=== PATIENT | male | born 1960 | race Caucasian/White ===

== ENCOUNTER → 2018-03-22 06:26 | Outpatient (CLI) | payer OTHER, SELFPAY ==
--- NOTE | 2018-03-22 | DI.MRI.S_ITS ---
PROCEDURE: MR KNEE RT WO CON INDICATIONS: PAIN IN RIGHT KNEE TECHNIQUE: Noncontrast sagittal PD fast spin echo and T2 fast spin echo with fat saturation, sagittal 3-D FLASH with fat saturation; coronal T1 spin echo and PD fast spin echo with fat saturation, and axial PD fast spin echo with fat saturation through the knee. COMPARISON: None. FINDINGS: Image quality: Excellent. Menisci: Vertically oriented tear of the posterior horn of the medial meniscus, for example image 23 series 11, image 24 series 8. The meniscus appears intact. Cruciate ligaments: The anterior and posterior cruciate ligaments appear intact. Medial structures: The medial collateral ligament appears mildly thickened although generally low in signal, for example image 19 series 11. The posterior oblique ligament, semimembranosus tendon insertions, oblique popliteal ligament, and meniscocapsular junction appear intact. Visualized portions of the pes anserinus tendons appear normal. No abnormal bursal fluid. Lateral structures: The lateral collateral ligament, long and short heads of the biceps femoris tendon appear intact. The popliteus tendon appears normal; the popliteofibular ligament appears intact. The posterosuperior and anteroinferior popliteomeniscal fascicles appear intact. The arcuate and fabellofibular ligaments appear intact, on either side of the lateral inferior geniculate artery. Iliotibial band appears normal. Anterior structures: Prepatellar and superficial infrapatellar subcutaneous edema is present. The quadriceps and patellar tendons appear intact. There is chronic appearing minimal patellar tendinopathy. Patellar alignment is normal. No femoral trochlear dysplasia or ventral trochlear prominence. No edema in the infrapatellar fat pad. Bones and cartilage: No bone marrow contusions or fractures. Within the medial compartment, there is mild partial thickness loss of the femoral articular cartilage. Tibia cartilage appears grossly preserved. Within the lateral compartment, the femoral and tibial articular cartilage appears grossly preserved. Within the patellofemoral compartment, there is surface fraying and partial-thickness loss of the cartilage overlying the median patellar ridge with mild subjacent marrow signal change. The femoral trochlear cartilage appears grossly intact. Joint space: Moderate joint effusion. There is a Diallo's cyst which measures approximately 5.7 cm in the cephalocaudad dimension. There is adjacent fluid. IMPRESSION: Vertically oriented tear involving the posterior horn of the medial meniscus. Low-grade medial collateral ligament sprain which appears chronic. Please correct clinically. Mild degenerative joint disease as above. Moderate joint effusion. Diallo's cyst. This may be slightly partially ruptured Minimal probably chronic patellar tendinopathy. Prepatellar and superficial infrapatellar subcutaneous edema. Dictated by: Emmanuel Álvarez M.D. on 03/22/2018 at 9:30 Approved by: Emmanuel Álvarez M.D. on 03/22/2018 at 9:44
== END ==
PROVIDERS: Visit Provider Family Medicine
DX: S83.241A Other tear of medial meniscus, current injury, right knee, initial encounter (principal); M25.561 Pain in right knee; M17.11 Unilateral primary osteoarthritis, right knee; M25.461 Effusion, right knee; M71.21 Synovial cyst of popliteal space [Baker], right knee
CPT/HCPCS: 73721

== ENCOUNTER → 2020-10-27 07:04 | Outpatient (CLI) | payer OTHER, SELFPAY ==
[2020-10-27 08:36] LABS: Hemoglobin A1C% w Est Avg Glu 6.1 % (4.0-6.0)
[2020-10-27 08:42] LABS: Alanine Aminotransferase 27 IU/L (<50); Albumin 3.8 g/dL (3.5-5.0); Albumin Globulin Ratio 1.4 (1.0-2.8); Alkaline Phosphatase 65 U/L (38-126); Aspartate Aminotransferase 27 IU/L (17-59); BUN Creatinine Ratio 17.9 (6-22); Bilirubin Total 0.6 mg/dL (0.2-1.3); Blood Urea Nitrogen 19 mg/dL (9-20); Calcium 9.5 mg/dL (8.4-10.2); Carbon Dioxide 32 mmol/L (22-32); Chloride 101 mmol/L (98-107); Cholesterol 159 mg/dL (140-199); Estimated Glomerular Filt Rate > 60.0 mL/min (>60); Globulin 2.8 g/dL (1.7-4.1); Glucose 118 mg/dL (70-100); HDL Cholesterol 27 mg/dL (40-60); HEMOLYSIS < 15 (0-50); LDL Cholesterol Calculated 93 mg/dL (<100); Sodium 140 mmol/L (137-145); Total Protein 6.6 g/dL (6.3-8.2); Triglycerides 193 mg/dL (35-150)
== END ==
PROVIDERS: PCP Internal Medicine; Referring Provider Internal Medicine; Visit Provider Internal Medicine
DX: I10 Essential (primary) hypertension (principal); I49.9 Cardiac arrhythmia, unspecified; N18.2 Chronic kidney disease, stage 2 (mild); R73.09 Other abnormal glucose
CPT/HCPCS: 36415; 80053; 80061; 83036

== ENCOUNTER 2021-01-26 09:06 | Emergency (ER) | payer OTHER, SELFPAY ==
[2021-01-26] VITALS (36 sets, daily range): BP systolic 145–204; BP diastolic 70–107; PULSE 45–70; RESP 11–38; TEMP 36.8; O2SAT 94–99; BMI 46.7
--- NOTE | 2021-01-26 09:18 | DI.CT.S_ITS ---
PROCEDURE: CT HEAD/BRAIN WO CON INDICATIONS: vertigo TECHNIQUE: Noncontrast 4.5 mm thick angled axial sections acquired from the foramen magnum to the vertex, with coronal and sagittal reformats. For radiation dose reduction, the following was used: automated exposure control, adjustment of mA and/or kV according to patient size. COMPARISON: None. FINDINGS: Image quality: Excellent. CSF spaces: Basal cisterns are patent. No extra-axial fluid collections. Ventricles are normal in size and shape. Brain: No midline shift. No intracranial masses or hemorrhage. Lynch-white matter interface is normal. Skull and face: Calvarium and visualized facial bones are intact, without suspicious lesions. Sinuses: Visualized sinuses and mastoids are clear. IMPRESSION: No acute intracranial finding. Dictated by: Roberto Pena M.D. on 01/26/2021 at 9:43 Approved by: Roberto Pena M.D. on 01/26/2021 at 9:44
--- NOTE | 2021-01-26 09:33 | DI.RAD.S_ITS ---
PROCEDURE: XR CHEST 1V INDICATIONS: chest pain TECHNIQUE: One view of the chest was acquired. COMPARISON: None. FINDINGS: Heart size enlarged. Mild vascular congestion noted. There is obscuration of left hemidiaphragm with a blunting of left costophrenic angle. Right lung and pleural space clear. Osseous structures unremarkable. IMPRESSION: Cardiomegaly, mild vascular congestion and left pleural effusion with atelectasis and/or infiltrate Approved by: Ted Edmond M.D. on 01/26/2021 at 9:16
--- NOTE | 2021-01-26 09:34 | ED_ITS ---
HPI - Neuro Symptoms/Deficit General Chief Complaint: Neuro Symptoms/Deficit Stated Complaint: BLACKING OUT/LOSS OF BALANCE/FUZZY/HEAVY CHESTED Time Seen by Provider: 01/26/21 09:17 Source: patient Mode of arrival: Wheelchair Limitations: no limitations History of Present Illness HPI Narrative: Patient is a 60-year-old male. A history of high blood pressure. Who is here for evaluation of an episode that occurred approximately 1 hour prior to arrival here in the ER. He stated that he was at his normal state he alth. He bent over while he was at work to pick something up. He stated that everything went black. He started to feel like his vision was changing. Became lightheaded. Was off balance and then describes a heaviness in his chest. Also stating that he was having some difficulty taking a deep breath. No abdominal pain, no nausea vomiting. No rashes. By the time he arrived to the emergency d epartment his vision changes have improved greatly but he is still having chest discomfort. On Anticoagulants: No Related Data Previous Rx's Medication Instructions Recorded lisinopril 20 1 tab PO DAILY #90 tab 02/17/20 mg-hydrochlorothiazide 12.5 mg tablet metoprolol tartrate 25 mg tablet 25 mg PO BID #180 tab 02/17/20 Allergies Allergy/AdvReac Type Severity Reaction Status Date / Time Corstisone Shots Allergy Mild Swelling Uncoded 11/26/20 13:28 Review of Systems Constitutional Constitutional: Denies fever(s) and Denies headache(s) Eyes Eyes: Reports as per HPI ENT Ears, Nose, Mouth, and Throat: Reports dizziness and Denies headache(s) Cardiovascular Cardiovascular: Reports as per HPI Respiratory Respiratory: Reports as per HPI Gastrointestinal Gastrointestinal: Reports system reviewed and no additional complaints, except as documented Genitourinary Genitourinary: Reports system reviewed and no additional complaints, except as documented Musculoskeletal Musculoskeletal: Reports system reviewed and no additional complaints, except as documented Integumentary/Breasts Skin/Breast: Reports system reviewed and no additional complaints, except as documented Neurologic Neurologic: Reports dizziness and Denies headache(s) Endocrine Endocrine: Reports system reviewed and no additional complaints, except as documented Hematologic/Lymphatic On Anticoagulants: No Allergic/Immunologic Allergic/Immunologic: Reports system reviewed and no additional complaints, except as documented Patient History Medical History Cardiac arrhythmia (~2017) Chronic renal failure, stage 2 (mild) Essential hypertension (~1999) Hyperglycemia Kidney stones (~2011) Left ventricular hypertrophy Obstructive sleep apnea of adult (~2018) Surgical History (Updated 03/28/20 @ 17:29 by Vernell Monterroso) Anesthesia H/O right knee surgery (~03/2018) Family History (Updated 03/28/20 @ 17:30 by Vernell Monterroso) Father Bronchitis Mother Diabetes mellitus History of heart disease Sister Cancer Social History Smoking Status: Never smoker Smoking Status: Never smoker Substance Use Type: does not use Exam Initial Vital Signs Initial Vital Signs: Vital Signs Pulse Oximetry 98 01/26/21 09:24 Const General: cooperative, comfortable and well developed HENMT Head: normal to inspection and normocephalic Eyes General: appearance normal, both eyes and all related structures Pupils: PERRL EOM: EOM intact bilaterally Chest Chest: normal inspection of the chest Resp Effort & Inspection: normal respiratory effort Auscultation: clear to auscultation bilaterally Cardio Rate: regular rate Rhythm: regular rhythm GI Inspection: normal to inspection Skin General: no rashes or lesions noted Neuro General: patient alert, patient awake, patient oriented x3 and moves all extremities Cranial Nerves: CN's II-XI intact bilaterally Cognition: normal cognition Speech: speech normal Motor: muscle tone normal throughout Extrem General: normal to inspection and capillary refill normal Psych Appearance: grossly normal and well kempt Scores NIH Stroke Scale Level of Conciousness: Alert, keenly responsive Ask month/age: Answers both questions correctly. Open/close eyes, close hand: Performs both tasks correctly Best gaze horizontal: Normal Visual merino: No visual loss Facial palsy: Normal symetrical movement Left arm drift: No drift for full 10 sec Right arm drift: No drift for full 10 sec Left leg drift: No drift for full 5 sec Right leg drift: No drift for full 5 sec Limb ataxia: Absent Sensory on face/arms/legs: Mild to moderate sensory loss, can tell touch (Right-sided face) Best language: No aphasia, normal Dysarthria: Normal Extinction or inattention: No abnormality Total NIH Stroke scale score: 1 Course Orders Ordered: ED Orders 01/26/21 09:18 CT head/brain wo con Stat 01/26/21 09:19 EKG-12 Lead Stat 01/26/21 09:25 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) Stat 01/26/21 09:33 XR chest 1V Stat 01/26/21 09:35 Complete Blood Count AUTO DIFF Stat Comprehensive Metabolic Panel Stat Ethanol (ETOH) Stat Lipase Stat Partial Thromboplastin Time Stat Prothrombin Time INR Stat Troponin & CK Cardiac Panel Stat 01/26/21 09:54 CT angio head and neck Stat 01/26/21 12:51 Troponin I Stat 01/26/21 13:26 EKG-12 Lead Stat 01/26/21 16:30 PTT [Partial Thromboplastin Time] Q6H 01/26/21 22:30 PTT [Partial Thromboplastin Time] Q6H 01/27/21 04:30 PTT [Partial Thromboplastin Time] Q6H 01/27/21 10:30 PTT [Partial Thromboplastin Time] Q6H Heparin Sodium/Dextrose (Heparin Drip) 25,000 unit in 500 mls @ 20 mls/hr IV CO NT [facility]; Protocol Last Admin: 01/26/21 15:27 Dose: 1,000 units/hr, 20 mls/hr Documented by: ZHEN Discontinued Medications Aspirin (Aspirin 81 Mg Chew Tab) 324 mg PO NOW ONE Stop: 01/26/21 09:35 Last Admin: 01/26/21 09:50 Dose: 324 mg Documented by: ZHEN Heparin Sodium (Porcine) (Heparin 5,000 Unit/Ml Vial) 5,000 unit IV NOW ONE Stop: 01/26/21 15:07 Last Admin: 01/26/21 15:27 Dose: 5,000 unit Documented by: ZHEN Nitroglycerin (Nitroglycerin Oint 1 Inch/Gm Oint...G.) 0.5 inch TOP NOW ONE Stop: 01/26/21 09:34 Last Admin: 01/26/21 09:50 Dose: 0.5 inch Documented by: ZHEN Nitroglycerin (Nitroglycerin 0.4 Mg Sl Tab) 0.4 mg SL NOW ONE Stop: 01/26/21 10:18 Last Admin: 01/26/21 10:21 Dose: 0.4 mg Documented by: ZHEN Vital Signs Vital signs: Vital Signs - 8 hr 01/26/21 09:24 01/26/21 09:30 01/26/21 09:31 Temperature Pulse Rate 68 62 Respiratory Rate Blood Pressure 204/93 H Pulse Oximetry 98 97 97 01/26/21 09:50 01/26/21 09:53 01/26/21 10:00 Temperature Pulse Rate 60 63 59 L Respiratory Rate 20 22 Blood Pressure 204/94 H 178/107 H Pulse Oximetry 97 97 01/26/21 10:01 01/26/21 10:14 01/26/21 10:21 Temperature Pulse Rate 56 L 70 60 Respiratory Rate 19 22 Blood Pressure 175/94 H 175/94 H 175/94 H Pulse Oximetry 97 98 01/26/21 10:30 01/26/21 10:31 01/26/21 11:00 Temperature Pulse Rate 57 L 57 L 50 L Respiratory Rate 16 18 19 Blood Pressure 160/78 H Pulse Oximetry 96 95 96 01/26/21 11:01 01/26/21 11:30 01/26/21 11:31 Temperature Pulse Rate 56 L 57 L 57 L Respiratory Rate 19 14 13 Blood Pressure 161/85 H 145/92 H Pulse Oximetry 97 95 96 01/26/21 12:00 01/26/21 12:01 01/26/21 12:30 Temperature Pulse Rate 45 L 47 L 56 L Respiratory Rate 11 L 21 17 Blood Pressure 164/83 H Pulse Oximetry 98 98 97 01/26/21 12:31 01/26/21 13:00 01/26/21 13:01 Temperature Pulse Rate 52 L 48 L 50 L Respiratory Rate 21 21 23 Blood Pressure 159/82 H 157/83 H Pulse Oximetry 96 97 97 01/26/21 13:30 01/26/21 13:31 01/26/21 14:00 Temperature Pulse Rate 53 L 52 L 48 L Respiratory Rate 18 20 16 Blood Pressure 151/81 H Pulse Oximetry 97 98 98 01/26/21 14:01 01/26/21 14:30 01/26/21 14:31 Temperature Pulse Rate 50 L 55 L 50 L Respiratory Rate 17 20 22 Blood Pressure 154/80 H 155/75 H Pulse Oximetry 98 98 99 01/26/21 14:36 01/26/21 15:00 01/26/21 15:01 Temperature 98.3 F Pulse Rate 56 L 55 L Respiratory Rate 27 H 30 H Blood Pressure 174/98 H Pulse Oximetry 98 98 01/26/21 15:30 Temperature Pulse Rate 57 L Respiratory Rate 27 H Blood Pressure Pulse Oximetry 97 MDM - Neuro Symptoms/Deficit Lab Data Attestation: I reviewed the patient's lab results. Result diagrams: 01/26/21 09:35 01/26/21 09:35 Labs: Lab Results 01/26/21 01/26/21 01/26/21 Range/Units 09:25 09:35 09:35 WBC 8.4 (4.5-11.0) X10^3/uL RBC 5.25 (4.5-5.9) X10^6/uL Hgb 15.3 (13.5-17.5) g/dL Hct 45.0 (41-53) % MCV 85.6 (80-100) fL MCH 29.1 (26-34) PG MCHC 34.0 (30-36) % RDW 13.4 (11.6-14.8) % Plt Count 210 (150-400) X10^3/uL Neut % (Auto) 70.6 (50-75) % Lymph % (Auto) 18.4 L (25-40) % Mitchell % (Auto) 7.8 (3-14) % Eos % (Auto) 2.0 (2-4) % Baso % (Auto) 1.2 (0-2) % Neut # (Auto) 5900 (7787-8220) /uL Lymph # (Auto) 1500 (2214-1584) /uL Mitchell # (Auto) 700 (0-900) /uL Eos # (Auto) 200 (0-450) /uL Baso # (Auto) 100 (0-100) /uL PT 12.7 (10.1-12.7) SECONDS INR 1.1 (0.9-1.3) APTT 34 (26.4-36.2) SECONDS Sodium (137-145) mmol/L Potassium (3.4-5.1) mmol/L Chloride (98-107) mmol/L Carbon Dioxide (22-32) mmol/L BUN (9-20) mg/dL Creatinine (0.66-1.25) mg/dL Estimated GFR (>60) mL/min BUN/Creatinine Ratio (6-22) Glucose (70-100) mg/dL Calcium (8.4-10.2) mg/dL Total Bilirubin (0.2-1.3) mg/dL AST (17-59) IU/L ALT (<50) IU/L Alkaline Phosphatase (38-126) U/L Total Creatine Kinase (55-170) U/L CK-MB (CK-2) (<2.37) ng/mL CK-MB (CK-2) Rel Index (1.5-5.0) % Troponin I (0.01-0.034) ng/mL Total Protein (6.3-8.2) g/dL Albumin (3.5-5.0) g/dL Globulin (1.7-4.1) g/dL Albumin/Globulin Ratio (1.0-2.8) Lipase (23-300) U/L Ethyl Alcohol ( - 10) mg/dL SARS-CoV-2 (PCR) Negative (Negative) 01/26/21 01/26/21 Range/Units 09:35 12:51 WBC (4.5-11.0) X10^3/uL RBC (4.5-5.9) X10^6/uL Hgb (13.5-17.5) g/dL Hct (41-53) % MCV (80-100) fL MCH (26-34) PG MCHC (30-36) % RDW (11.6-14.8) % Plt Count (150-400) X10^3/uL Neut % (Auto) (50-75) % Lymph % (Auto) (25-40) % Mitchell % (Auto) (3-14) % Eos % (Auto) (2-4) % Baso % (Auto) (0-2) % Neut # (Auto) (6531-3608) /uL Lymph # (Auto) (2629-7663) /uL Mitchell # (Auto) (0-900) /uL Eos # (Auto) (0-450) /uL Baso # (Auto) (0-100) /uL PT (10.1-12.7) SECONDS INR (0.9-1.3) APTT (26.4-36.2) SECONDS Sodium 137 (137-145) mmol/L Potassium 3.9 (3.4-5.1) mmol/L Chloride 103 (98-107) mmol/L Carbon Dioxide 26 (22-32) mmol/L BUN 16 (9-20) mg/dL Creatinine 0.93 (0.66-1.25) mg/dL Estimated GFR > 60.0 (>60) mL/min BUN/Creatinine Ratio 17.2 (6-22) Glucose 115 H (70-100) mg/dL Calcium 9.3 (8.4-10.2) mg/dL Total Bilirubin 0.4 (0.2-1.3) mg/dL AST 32 (17-59) IU/L ALT 30 (<50) IU/L Alkaline Phosphatase 65 (38-126) U/L Total Creatine Kinase 180 H (55-170) U/L CK-MB (CK-2) 2.17 (<2.37) ng/mL CK-MB (CK-2) Rel Index 1.2 L (1.5-5.0) % Troponin I 0.056 H 0.049 H (0.01-0.034) ng/mL Total Protein 7.4 (6.3-8.2) g/dL Albumin 4.3 (3.5-5.0) g/dL Globulin 3.1 (1.7-4.1) g/dL Albumin/Globulin Ratio 1.4 (1.0-2.8) Lipase 68 (23-300) U/L Ethyl Alcohol < 10 ( - 10) mg/dL SARS-CoV-2 (PCR) (Negative) Urine Dip Bedside Urine Glucose Negative Bedside Urine Bilirubin - Negative Bedside Urine Ketone - Negative Urine Specific [place] 1.015 Bedside Urine Occult Blood - Negative Bedside Urine pH 6.5 Bedside Urine Protein - Negative Bedside Urine Leukocytes - Negative Esterase ECG Data Attestation: I personally reviewed and interpreted this ECG as follows: Interpretation: Sinus rhythm Ventricular rate is 67 Frequent PACs Normal QRS Normal QTC Nonspecific ST T wave changes Repeat EKG Sinus bradycardia Ventricular rate of 58 Occasional PACs Normal QRS Normal QTC Relatively unchanged from prior EKG [facility] Narrative Medical decision making narrative: Patient was a code stroke upon arrival however after further evaluation his presenting neurologic symptoms are most likely a presyncopal episode. He was having chest pressure. Was also hypertensive. Was given nitro paste which helped his chest pressure somewhat and then was given 1 dose of oral nitroglycerin. This then improve his blood pressure and his chest discomfort completely resolved. He had nonspecific changes on his EKG. His initial troponin greater than the 99th percentile. Started on heparin. Was given an aspirin. Remained chest pain free. Repeat troponin somewhat lower than the initial troponin but still above 99th percentile. I did discuss the case with Dr. Mccauley with Cardiology at [facility] who stated that he would see the patient upon arrival. I then discussed the case with Dr. James with Internal Medicine at [facility] who accepts the patient to transport. I went back in and talked with the patient about the transfer. This is when he stated that in March of last year he was in [place] and had chest discomfort. He was admitted to the hospital. Stated that he had a full workup to include a cardiac catheterization. He was told that everything was ?okay ?he had no stents placed. I do not these records in front of me to review. Since that time he has had chest discomfort at home. He does not have any nitroglycerin at home to take. Had a long discussion with him and his regarding this new circumstance. Informed him that his presenting symptoms today are concerning given the fact that he was having chest discomfort that resolved with nitroglycerin also in the setting of hypertension. Informed him that being transferred to a facility that has Cardiology/catheterization capability would be the most conservative thing to do for further evaluation of his symptoms today however I did offer to contact his primary care doctor to see whether not Dr. Shaikh would be willing to admit him to this facility given his workup almost 1 year ago. After this discussion with his at bedside the patient stated that he was willing to be transferred for further evaluation. Patient is currently stable for transport. I did look through his EMR records and could not find his prior cardiac workup that he stated was placed in his record by his primary doctor. Critical Care Time Critical Care Time Critical Care Time: Yes Total Critical Care Time: 35 Attestation: The high probability of a clinically significant, sudden or life threatening deterioration of the cardiovascular system(s) required my full and direct attention, intervention and personal management. The aggregate critical care time was [35] minutes. This time is in addition to time spent performing reported procedures but includes the following: [x] Data Review and interpretation [x] Patient assessment and monitoring of vital signs [x] Documentation [x] Medication orders and management Discharge Plan Departure Patient Disposition: [facility] Clinical Impression: Non-ST elevation NE (NSTEMI) Prescriptions: No Action lisinopril-hydrochlorothiazide 20-12.5 mg tablet 1 tab PO DAILY Qty: 90 RF: 3 metoprolol tartrate 25 mg tablet 25 mg PO BID Qty: 180 RF: 3 Referrals: Adan Shaikh MD [Primary Care Provider] -
[2021-01-26 09:42] LABS: Add Manual Diff / Slide Review NO; Basophils Absolute Auto 100 /uL (0-100); Basophils Percent Auto 1.2 % (0-2); Eosinophils Absolute Auto 200 /uL (0-450); Hemoglobin 15.3 g/dL (13.5-17.5); Lymphocytes Absolute Auto 1500 /uL (1100-4500); Lymphocytes Percent Auto 18.4 % (25-40); Mean Corpuscular Hemoglobin 29.1 PG (26-34); Mean Corpuscular Volume 85.6 fL (80-100); Monocytes Absolute Auto 700 /uL (0-900); Monocytes Percent Auto 7.8 % (3-14); Neutrophils Absolute Auto 5900 /uL (1500-7000); Neutrophils Percent Auto 70.6 % (50-75); Platelet Count 210 X10^3/uL (150-400); Red Blood Cell Count 5.25 X10^6/uL (4.5-5.9); Red Cell Distribution Width 13.4 % (11.6-14.8); White Blood Cell Count 8.4 X10^3/uL (4.5-11.0)
[2021-01-26 09:48] LABS: INR 1.1 (0.9-1.3); Prothrombin Time 12.7 SECONDS (10.1-12.7)
[2021-01-26] MEDS: NITROGLYCERIN OINT 1 INCH/GM OINT...G. 0.5 INCH TOP (09:50)
[2021-01-26] MEDS: ASPIRIN 81 MG CHEW TAB 324 MG PO (09:50)
[2021-01-26 09:51] LABS: PTT Partial Thromboplastin Tim 34 SECONDS (26.4-36.2)
--- NOTE | 2021-01-26 09:54 | DI.CT.S_ITS ---
PROCEDURE: CT ANGIO HEAD AND NECK INDICATIONS: vertigo TECHNIQUE: Noncontrast images were performed earlier in the day and not repeated. After the administration of intravenous contrast, 1 mm thick sections acquired from the aortic arch through the [place]. Post-contrast 4.5 mm thick sections then re-acquired from the foramen magnum to the vertex. 3-dimensional ykzsjxb-rdznmqmyz-bphonlaash (MIP) and/or volume rendering reformats were acquired of the central intracranial vasculature and neck separately. COMPARISON: [facility], CT, CT HEAD/BRAIN WO CON, 01/26/2021, 9:21. FINDINGS: Image quality: Excellent. BRAIN: CSF spaces: Ventricles are normal in size and shape. Basal cisterns are patent. No extra-axial fluid collections. Brain: No midline shift. No intracranial bleeds or masses. Lynch-white matter interface appears intact. Skull and face: Calvarium and facial bones appear intact, without suspicious lesions. Orbits appear normal. Sinuses: Sinuses and mastoids are clear. HEAD CT ANGIOGRAPHY: Anterior circulation: Intracranial internal carotid arteries are normal in size and flow. There is a hypoplastic right A1 segment, with a corresponding robust left A1 segment. This is considered to be a normal developmental variant of the [place], of typically no clinical consequence. The flow within the paired anterior cerebral arteries is otherwise normal and symmetric. The flow within the middle cerebral arteries is normal and symmetric. The anterior communicating artery is seen. No aneurysms are seen. Posterior circulation: The distal right vertebral artery largely terminates in right posterior inferior cerebellar artery. There is a normal appearing basilar artery. Flow within the posterior cerebral arteries is normal and symmetric. No aneurysms are seen. NECK CT ANGIOGRAPHY: Carotid system: The great vessels demonstrate a conventional anatomy as they arise from the aortic arch. The origins of the common carotid arteries appear patent. The common carotid arteries demonstrate normal caliber and courses. The bifurcation regions demonstrate atherosclerotic irregularity and calcification, yet without a hemodynamically significant stenosis. The more distal internal carotid arteries demonstrate normal calibers. The internal carotid arteries are highly tortuous. Posterior circulation: The origins of the vertebral arteries both appear widely patent. The more superior extracranial portions of both vertebral arteries also demonstrate normal courses and calibers. The left vertebral artery is dominant to the right. Soft tissues: Visualized neck soft tissues demonstrate no suspicious abnormalities. Bones: No suspicious bony lesions. Visualized cervical spine appears normally aligned. IMPRESSION: No significant intracranial arterial abnormality is seen. Within the arteries of the neck, no hemodynamically significant stenosis can be seen. Incidental note is made of: Hypoplastic right A1 segment Tortuous internal carotid arteries. Any quantitative measurements of stenosis were performed using NASCET criteria. Dictated by: Jared Lin M.D. on 01/26/2021 at 9:11 Approved by: Jared Lin M.D. on 01/26/2021 at 9:14
[2021-01-26 09:56] LABS: Alanine Aminotransferase 30 IU/L (<50); Albumin 4.3 g/dL (3.5-5.0); Albumin Globulin Ratio 1.4 (1.0-2.8); Alkaline Phosphatase 65 U/L (38-126); Aspartate Aminotransferase 32 IU/L (17-59); BUN Creatinine Ratio 17.2 (6-22); Bilirubin Total 0.4 mg/dL (0.2-1.3); Blood Urea Nitrogen 16 mg/dL (9-20); Calcium 9.3 mg/dL (8.4-10.2); Carbon Dioxide 26 mmol/L (22-32); Chloride 103 mmol/L (98-107); Creatine Kinase 180 U/L (55-170); Estimated Glomerular Filt Rate > 60.0 mL/min (>60); Ethanol (ETOH) < 10 mg/dL; Globulin 3.1 g/dL (1.7-4.1); Glucose 115 mg/dL (70-100); HEMOLYSIS < 15 (0-50); Lipase 68 U/L (23-300); Potassium 3.9 mmol/L (3.4-5.1); Sodium 137 mmol/L (137-145); Total Protein 7.4 g/dL (6.3-8.2)
[2021-01-26 10:06] LABS: Troponin I 0.056 ng/mL (0.01-0.034)
[2021-01-26 10:10] LABS: CKMB % Relative Index 1.2 % (1.5-5.0); Creatine Kinase MB 2.17 ng/mL (<2.37)
[2021-01-26] MEDS: NITROGLYCERIN 0.4 MG SL TAB SL (10:21)
[2021-01-26 10:42] LABS: COVID19 - ADMIT (NP swab/PCR) Negative (Negative)
--- NOTE | 2021-01-26 10:56 | PC.NURSE ---
pt given PO NTG in addition to paste. original pain 09/18, pt reports resolution of pain after 1 tab oral NTG. BP improved to 160/72 from 204/systolic. at bedside. NAD.
[2021-01-26 13:12] LABS: Troponin I 0.049 ng/mL (0.01-0.034)
[2021-01-26] MEDS: HEPARIN 5,000 UNIT/ML VIAL 5000 UNIT IV (15:27)
[2021-01-26] MEDS: HEPARIN DRIP 25,000 UNIT/500 ML IV.SOLN 20 UNIT IV (15:27)
--- NOTE | 2021-01-26 17:24 | PC.NURSE ---
Addendum entered by Bruna Rocha R.N. 01/26/21 17:25: Pt departed ED with Heparin gtt infusing at 1000 units/hr Original Note: [facility] in ED to transport pt to [facility]. Report given to BREONNA MorrisseyA
--- NOTE | 2021-01-26 17:34 | PC.NURSE ---
Report given to BREONNA Coleman
== END 2021-01-26 17:34 | disposition short-term general hospital (02) ==
PROVIDERS: Emergency Provider Emergency Medicine; PCP Internal Medicine
DX: I21.4 Non-ST elevation (NSTEMI) myocardial infarction (principal); I10 Essential (primary) hypertension; R07.9 Chest pain, unspecified; R42 Dizziness and giddiness; Z20.822 Contact with and (suspected) exposure to COVID-19
CPT/HCPCS: 36415; 70450; 70496; 70498; 71045; 80053; 80320; 81003; 82550; 82553; 83690; 84484; 85025; 85610; 85730; 87635; 93005; 93010; 96365; 96366; 96375; 99285; 99291; C9803; J1644; Q9967

== ENCOUNTER → 2021-07-29 06:51 | Outpatient (CLI) | payer OTHER, SELFPAY ==
[2021-07-29 08:58] LABS: Hemoglobin A1C% w Est Avg Glu 6.5 % (4.0-6.0)
[2021-07-29 09:09] LABS: Alanine Aminotransferase 28 IU/L (<50); Albumin Globulin Ratio 1.2 (1.0-2.8); Alkaline Phosphatase 64 U/L (38-126); Aspartate Aminotransferase 25 IU/L (17-59); Bilirubin Total 0.8 mg/dL (0.2-1.3); Blood Urea Nitrogen 13 mg/dL (9-20); Calcium 9.1 mg/dL (8.4-10.2); Carbon Dioxide 29 mmol/L (22-32); Chloride 103 mmol/L (98-107); Cholesterol 179 mg/dL (140-199); Estimated Glomerular Filt Rate > 60.0 mL/min (>60); Globulin 3.3 g/dL (1.7-4.1); Glucose 115 mg/dL (70-100); HDL Cholesterol 34 mg/dL (40-60); HEMOLYSIS < 15 (0-50); LDL Cholesterol Calculated 127 mg/dL (<100); Sodium 139 mmol/L (137-145); Total Protein 7.3 g/dL (6.3-8.2); Triglycerides 90 mg/dL (35-150)
[2021-07-29 09:36] LABS: Prostate Specific Antigen Scrn 0.957 ng/mL (0.1-4.0)
== END ==
PROVIDERS: PCP Internal Medicine; Referring Provider Internal Medicine; Visit Provider Internal Medicine
DX: I10 Essential (primary) hypertension (principal); R73.9 Hyperglycemia, unspecified; Z12.5 Encounter for screening for malignant neoplasm of prostate
CPT/HCPCS: 36415; 80053; 80061; 83036; G0103

== ENCOUNTER → 2021-08-05 09:41 | Outpatient (CLI) | payer OTHER, SELFPAY ==
--- NOTE | 2021-08-05 09:43 | DI.RAD.S_ITS ---
PROCEDURE: XR CHEST 2V INDICATIONS: chest pain TECHNIQUE: 2 views of the chest were acquired. COMPARISON: [facility], CR, XR CHEST 1V, 01/26/2021, 9:30. FINDINGS: Surgical changes and devices: None. Lungs and pleura: Persistent left basilar atelectasis and or infiltrate noted. Pleural spaces are clear. Underlying chronic interstitial changes noted. Mediastinum: Mediastinal contours are normal. Heart size is enlarged. Bones and chest wall: No suspicious bony abnormalities. Soft tissues appear unremarkable. IMPRESSION: Persistent left basilar atelectasis and infiltrate, improved from the prior. No pleural effusion. Approved by: Ted Edmond M.D. on 08/05/2021 at 10:12
== END ==
PROVIDERS: PCP Internal Medicine; Referring Provider Internal Medicine; Visit Provider Internal Medicine
DX: R07.9 Chest pain, unspecified (principal); J98.11 Atelectasis
CPT/HCPCS: 71046

== ENCOUNTER → 2022-08-02 14:29 | Outpatient (CLI) | payer OTHER, SELFPAY ==
[2022-08-02 15:29] LABS: Alanine Aminotransferase 26 IU/L (<50); Albumin 4.1 g/dL (3.5-5.0); Albumin Globulin Ratio 1.2 (1.0-2.8); Alkaline Phosphatase 84 U/L (38-126); Aspartate Aminotransferase 24 IU/L (17-59); BUN Creatinine Ratio 14.1 (6-22); Bilirubin Total 0.5 mg/dL (0.2-1.3); Blood Urea Nitrogen 20 mg/dL (9-20); Calcium 8.9 mg/dL (8.4-10.2); Carbon Dioxide 29 mmol/L (22-32); Chloride 101 mmol/L (98-107); Estimated Glomerular Filt Rate 57 mL/min (>60); Globulin 3.3 g/dL (1.7-4.1); Glucose 141 mg/dL (80-110); HEMOLYSIS < 15 (0-50); Hemoglobin A1C% w Est Avg Glu 6.5 % (4.0-6.0); Potassium 3.8 mmol/L (3.4-5.1); Sodium 140 mmol/L (137-145); Total Protein 7.4 g/dL (6.3-8.2)
== END ==
PROVIDERS: PCP Internal Medicine; Referring Provider Internal Medicine; Visit Provider Internal Medicine
DX: E11.9 Type 2 diabetes mellitus without complications (principal); I10 Essential (primary) hypertension
CPT/HCPCS: 36415; 80053; 83036

== ENCOUNTER → 2022-10-27 06:51 | Outpatient (CLI) | payer OTHER, SELFPAY ==
--- NOTE | 2022-10-27 | DI.MRI.S_ITS ---
PROCEDURE: MR KNEE LT WO CON INDICATIONS: Unspecified internal derangement of left knee TECHNIQUE: Noncontrast sagittal PD fast spin echo and T2 fast spin echo with fat saturation, sagittal 3-D FLASH with fat saturation; coronal T1 spin echo and PD fast spin echo with fat saturation, and axial PD fast spin echo with fat saturation through the knee. COMPARISON: [facility], MR, MR KNEE RT WO CON, 03/22/2018, 6:40. FINDINGS: Image quality: Diagnostic. Significant patient motion is seen. Menisci: Signal abnormality involving posterior horn of medial meniscus extending to inferior articulating surface is seen suggestive of oblique tear. The lateral meniscus is intact. Peripheral displacement of medial meniscus bowing medial collateral ligament is noted. The meniscal root ligaments appear intact. Cruciate ligaments: The anterior cruciate ligament is mildly thickened. The posterior cruciate ligament is intact. Medial structures: The medial collateral ligament appears thickened with adjacent soft tissue edema.. The posterior oblique ligament, semimembranosus tendon insertions, oblique popliteal ligament, and meniscocapsular junction appear intact. Visualized portions of the pes anserinus tendons appear normal. No abnormal bursal fluid. Lateral structures: The lateral collateral ligament, long and short heads of the biceps femoris tendon appear thickened. The popliteus tendon appears normal; the popliteofibular ligament appears intact. Iliotibial band appears normal. Anterior structures: The quadriceps and patellar tendons appear intact. Patellar alignment is normal. No femoral trochlear dysplasia or ventral trochlear prominence. No edema in the infrapatellar fat pad. Bones and cartilage: No bone marrow contusions or fractures. 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 Joint space: There is small to moderate knee joint fluid. There is a 2.9 x 2.4 x 5.8 cm Diallo's cyst. Normal appearing synovial plicae are incidentally noted. IMPRESSION: 1. Complex oblique tear involving posterior horn of medial meniscus extending to inferior articulating surface. No focal lateral meniscal tear. 2. Low-grade ACL sprain. Low to moderate grade MCL and LCL sprain. No full-thickness ligament rupture. 3. 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 No fracture or dislocation. Small joint effusion, no loose bodies. 4. Small to moderate amount of joint effusion and a lobulated Diallo's cyst as above. No gross loose bodies. Dictated by: Calvin Brower M.D. on 10/27/2022 at 10:20 Approved by: Calvin Brower M.D. on 10/27/2022 at 10:30
== END ==
PROVIDERS: PCP Internal Medicine; Referring Provider Orthopaedic Surgery Foot and Ankle Surgery; Visit Provider Orthopaedic Surgery Foot and Ankle Surgery
DX: M23.92 Unspecified internal derangement of left knee (principal); S83.242A Other tear of medial meniscus, current injury, left knee, initial encounter; S83.422A Sprain of lateral collateral ligament of left knee, initial encounter; S83.412A Sprain of medial collateral ligament of left knee, initial encounter; S83.512A Sprain of anterior cruciate ligament of left knee, initial encounter; M17.12 Unilateral primary osteoarthritis, left knee; M94.262 Chondromalacia, left knee; M25.462 Effusion, left knee; M71.22 Synovial cyst of popliteal space [Baker], left knee
CPT/HCPCS: 73721

== ENCOUNTER → 2022-11-24 07:46 | Outpatient (CLI) | payer OTHER, SELFPAY ==
[2022-11-24 09:29] LABS: Alanine Aminotransferase 25 IU/L (<50); Albumin Globulin Ratio 1.4 (1.0-2.8); Alkaline Phosphatase 76 U/L (38-126); Aspartate Aminotransferase 22 IU/L (17-59); BUN Creatinine Ratio 18.2 (6-22); Bilirubin Total 0.9 mg/dL (0.2-1.3); Blood Urea Nitrogen 18 mg/dL (9-20); Carbon Dioxide 30 mmol/L (22-32); Chloride 100 mmol/L (98-107); Cholesterol 176 mg/dL (140-199); Estimated Glomerular Filt Rate > 60 mL/min (>60); Globulin 2.9 g/dL (1.7-4.1); Glucose 151 mg/dL (80-110); HDL Cholesterol 32 mg/dL (40-60); HEMOLYSIS < 15 (0-50); LDL Cholesterol Calculated 120 mg/dL (<100); Potassium 3.8 mmol/L (3.4-5.1); Sodium 136 mmol/L (137-145); Total Protein 6.9 g/dL (6.3-8.2); Triglycerides 118 mg/dL (35-150)
[2022-11-24 10:00] LABS: Prostate Specific Antigen Scrn 1.04 ng/mL (0.1-4.0)
[2022-11-25 03:50] LABS: Labcorp Hemoglobin (Hb) A1c 6.4 % (4.8-5.6)
== END ==
PROVIDERS: PCP Internal Medicine; Referring Provider Internal Medicine; Visit Provider Internal Medicine
DX: E11.9 Type 2 diabetes mellitus without complications (principal); E66.01 Morbid (severe) obesity due to excess calories; I10 Essential (primary) hypertension; N18.31 Chronic kidney disease, stage 3a; Z12.5 Encounter for screening for malignant neoplasm of prostate
CPT/HCPCS: 36415; 80053; 80061; 83036; G0103

== ENCOUNTER 2023-02-04 23:12 | Emergency (ER) | payer OTHER, SELFPAY ==
[2023-02-04 23:16] VITALS: BP 175/85; PULSE 82; RESP 18; TEMP 36.8; O2SAT 97; BMI 41.8
[2023-02-04 23:48] LABS: COVID19 -Nasal RAPID Negative (Negative); Strep Grp A by PCR Rapid Negative (Negative)
== END 2023-02-05 01:18 | disposition left against medical advice (07) ==
PROVIDERS: Emergency Provider Emergency Medicine; PCP Internal Medicine
DX: R06.00 Dyspnea, unspecified (principal)
CPT/HCPCS: 87081; 87635; 87651; 99281; C9803

== ENCOUNTER → 2023-02-08 07:36 | Outpatient (CLI) | payer OTHER, SELFPAY ==
--- NOTE | 2023-02-08 07:37 | DI.RAD.S_ITS ---
PROCEDURE: XR CHEST 2V INDICATIONS: Chest congestion TECHNIQUE: 2 views of the chest were acquired. COMPARISON: [facility], CR, XR CHEST 2V, 08/05/2021, 9:34. [facility], CR, XR CHEST 1V, 01/26/2021, 9:30. FINDINGS: Surgical changes and devices: None. Lungs and pleura: No consolidation. Minimal streaky opacity in the left lung is unchanged. Likely scarring or atelectasis. No pleural effusions or pneumothorax. Mediastinum: Mediastinal contours are unchanged. Heart size is normal. Bones and chest wall: No suspicious bony abnormalities. Soft tissues appear unremarkable. IMPRESSION: No acute cardiopulmonary abnormality. Dictated by: Michael Turk M.D. on 02/08/2023 at 12:12 Approved by: Michael Turk M.D. on 02/08/2023 at 12:13
== END ==
PROVIDERS: PCP Internal Medicine; Referring Provider Nurse Practitioner Family; Visit Provider Nurse Practitioner Family
DX: R09.89 Other specified symptoms and signs involving the circulatory and respiratory systems (principal)
CPT/HCPCS: 71046

== ENCOUNTER → 2023-08-17 06:50 | Outpatient (CLI) | payer OTHER, SELFPAY ==
[2023-08-17 08:16] LABS: Hemoglobin A1C% w Est Avg Glu 6.2 % (4.0-6.0)
[2023-08-17 08:23] LABS: Alanine Aminotransferase 27 IU/L (<50); Albumin 3.9 g/dL (3.5-5.0); Albumin Globulin Ratio 1.2 (1.0-2.8); Alkaline Phosphatase 79 U/L (38-126); Aspartate Aminotransferase 26 IU/L (17-59); BUN Creatinine Ratio 15.7 (6-22); Bilirubin Total 0.7 mg/dL (0.2-1.3); Blood Urea Nitrogen 14 mg/dL (9-20); Carbon Dioxide 29 mmol/L (22-32); Chloride 106 mmol/L (98-107); Estimated Glomerular Filt Rate > 60 mL/min (>60); Globulin 3.3 g/dL (1.7-4.1); Glucose 143 mg/dL (80-110); HEMOLYSIS < 15 (0-50); Potassium 3.8 mmol/L (3.4-5.1); Sodium 140 mmol/L (137-145); Total Protein 7.2 g/dL (6.3-8.2)
[2023-08-17 09:05] LABS: Creatinine Urine Random 85.3 mg/dL
[2023-08-17 09:08] LABS: Microalbumi Creatinin Ratio Ur 10.5 ug/mg CR (<30); Microalbumin Urine Random 0.9 mg/dL (0-1.6)
== END ==
PROVIDERS: PCP Internal Medicine; Referring Provider Internal Medicine; Visit Provider Internal Medicine
DX: N18.31 Chronic kidney disease, stage 3a (principal); E11.9 Type 2 diabetes mellitus without complications; E66.01 Morbid (severe) obesity due to excess calories; I10 Essential (primary) hypertension
CPT/HCPCS: 36415; 80053; 82043; 82570; 83036

== ENCOUNTER 2024-02-13 09:35 | Emergency (ER) | payer OTHER, SELFPAY ==
[2024-02-13] VITALS (12 sets, daily range): BP systolic 145–180; BP diastolic 75–97; PULSE 65–95; RESP 15–33; TEMP 36.9; O2SAT 94–99; BMI 45.1
--- NOTE | 2024-02-13 09:41 | EKG_ITS ---
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
--- NOTE | 2024-02-13 09:41 | DI.RAD.S_ITS ---
PROCEDURE: XR CHEST 1V INDICATIONS: chest pain TECHNIQUE: One view of the chest was acquired. COMPARISON: [facility], CR, XR CHEST 2V, 02/08/2023, 7:43. FINDINGS: Surgical changes and devices: None. Lungs and pleura: Lungs are clear. No pleural effusions or pneumothorax. Mediastinum: Mediastinal contours appear normal. Heart size is normal. Bones and chest wall: No suspicious bony lesions. Overlying soft tissues appear unremarkable. IMPRESSION: No acute cardiopulmonary abnormality is seen. Dictated by: Kapil Graves M.D. on 02/13/2024 at 10:28 Approved by: Kapil Graves M.D. on 02/13/2024 at 10:28
[2024-02-13] MEDS: ASPIRIN 81 MG CHEW TAB 324 MG PO (09:46)
--- NOTE | 2024-02-13 09:49 | ED_ITS ---
HPI - Chest Pain General Chief Complaint: Chest Pain Stated Complaint: chest pain, eyesight different Time Seen by Provider: 02/13/24 09:48 Source: patient Mode of arrival: Ambulatory Limitations: no limitations History of Present Illness HPI narrative: 63-year-old male reports history of heart attack diagnosis 2019 in [facility], recalls having stress testing that was abnormal, leading to cardiac catheterization, no coronary vessel interventions, recalls being told that he had a ?big heart?, no recollection diagnosis of atrial fibrillation or atrial flutter, with chest pain for the last 2 days, left anterior, some radiation to the left arm this morning, no associated nausea, no associated diaphoresis. No radiation to the left scapula or neck or jaw or right upper extremity, nor to either leg. No injury or trauma new activities. No cough shortness of breath. He does also complain of ?dark sensation? of both eyes intermittently over the last couple of days. No previous history of stroke or TIA known. He does not take chronic blood thinner medications. No leg pain or swelling symptoms. Related Data Previous Rx's Medication Instructions Recorded gabapentin 300 mg capsule 300 mg PO BEDTIME #90 caps 08/23/23 amlodipine 10 mg tablet 10 mg PO DAILY #90 tabs 12/10/23 hydrochlorothiazide 12.5 mg tablet 12.5 mg PO DAILY #90 tabs 12/10/23 lisinopril 20 mg tablet 20 mg PO DAILY #90 tabs 12/10/23 apixaban 5 mg tablet (Eliquis) 5 mg PO BID #60 tabs 02/13/24 Allergies Allergy/AdvReac Type Severity Reaction Status Date / Time No Known Drug Allergies Allergy Verified 02/13/24 09:42 Review of Systems Review of Systems Narrative: See HPI Patient History Medical History (Updated 02/13/24 @ 11:02 by Britton Jose MD) Diabetic peripheral neuropathy Chronic renal failure, stage 3a Diabetes type 2, controlled Morbid obesity Hyperglycemia Kidney stones (~2011) Cardiac arrhythmia (~2017) Chronic renal failure, stage 2 (mild) Obstructive sleep apnea of adult (~2018) Left ventricular hypertrophy Essential hypertension (~1999) Surgical History (System 02/05/23 @ 07:35 by Shakeel Hartley) Anesthesia H/O right knee surgery (~03/2018) Family History Father Bronchitis Mother Diabetes mellitus History of heart disease Sister Cancer Social History (System 02/05/23 @ 07:35 by Shakeel Hartley) Smoking Status: Never smoker Smoking Status: Never smoker alcohol intake frequency: holidays/special occasions only Substance Use Type: does not use Exam Narrative Exam Narrative: GENERAL: Well-developed patient, in mild distress. HEAD: Atraumatic. Normocephalic. EYES: Pupils equal round and reactive. Extraocular motions intact. No scleral icterus. No injection or drainage. ENT: Nose without bleeding, purulent drainage. Throat without erythema, tonsillar hypertrophy or exudate. Airway patent. NECK: Trachea midline. Non tender CARDIOVASCULAR: Irregularly irregular rhythm without obvious murmur, not particularly fast rate. No rubs or gallops. RESPIRATORY: Clear to auscultation. Breath sounds equal bilaterally. No wheezes, rales, or rhonchi. GASTROINTESTINAL: Abdomen soft, non-tender, nondistended. EXTREMITIES: No edema or joint tenderness. BACK: Nontender without deformity or crepitance. No flank tenderness. NEURO: AOx3. Nonfocal neuro exam. SKIN: No rash or erythema of visible areas Initial Vital Signs Initial Vital Signs: Vital Signs Temperature 98.5 F 02/13/24 09:36 Pulse Rate 65 02/13/24 09:36 Respiratory Rate 15 02/13/24 09:36 Blood Pressure 167/84 H 02/13/24 09:36 Pulse Oximetry 99 02/13/24 09:36 Oxygen Delivery Method Room Air 02/13/24 09:36 Course Orders Ordered: ED Orders 02/13/24 10:31 CT head/brain wo con Stat 02/13/24 10:32 CT angio head and neck Stat 02/13/24 11:47 Trop I [Troponin I] Stat Discontinued Medications Aspirin (Aspirin 81 Mg Chew Tab) 324 mg PO NOW ONE Stop: 02/13/24 09:42 Last Admin: 02/13/24 09:46 Dose: 324 mg Documented By: KB Morphine Sulfate (Morphine 4 Mg/Ml Inj) 4 mg IV NOW ONE Stop: 02/13/24 10:40 Last Admin: 02/13/24 10:57 Dose: 4 mg Documented By: CTS Vital Signs Vital signs: Vital Signs - 8 hr 02/13/24 11:48 02/13/24 12:00 02/13/24 12:30 Pulse Rate 87 87 92 H Respiratory Rate 24 21 Blood Pressure Pulse Oximetry 98 95 94 Oxygen Delivery Method 02/13/24 13:00 02/13/24 13:02 02/13/24 13:06 Pulse Rate 91 H Respiratory Rate 33 H Blood Pressure 180/97 H Pulse Oximetry 95 95 Oxygen Delivery Method Room Air MDM - Chest Pain Lab Data Attestation: I reviewed the patient's lab results. 02/13/24 09:45 02/13/24 09:45 Labs: Lab Results 02/13/24 02/13/24 Range/Units 09:45 11:47 WBC 7.6 (4.5-11.0) X10^3/uL RBC 5.02 (4.5-5.9) X10^6/uL Hgb 15.2 (13.5-17.5) g/dL Hct 43.4 (41-53) % MCV 86.5 (80-100) fL MCH 30.3 (26-34) PG MCHC 35.0 (30-36) % RDW 13.3 (11.6-14.8) % Plt Count 205 (150-400) X10^3/uL Neut % (Auto) 68.9 (50-75) % Lymph % (Auto) 21.4 L (25-40) % [place] % (Auto) 6.5 (3-14) % Eos % (Auto) 1.9 L (2-4) % Baso % (Auto) 1.3 (0-2) % Neut # (Auto) 5300 (2729-2108) /uL Lymph # (Auto) 1600 (8446-4004) /uL [place] # (Auto) 500 (0-900) /uL Eos # (Auto) 100 (0-450) /uL Baso # (Auto) 100 (0-100) /uL PT 12.7 H (9.4-12.5) SECONDS INR 1.1 (0.9-1.3) APTT 36 (25.1-36.5) SECONDS Sodium 134 L (137-145) mmol/L Potassium 3.7 (3.4-5.1) mmol/L Chloride 101 (98-107) mmol/L Carbon Dioxide 24 (22-32) mmol/L BUN 18 (9-20) mg/dL Creatinine 0.95 (0.66-1.25) mg/dL Estimated GFR > 60 (>60) mL/min BUN/Creatinine Ratio 18.9 (6-22) Glucose 268 H (80-110) mg/dL Hemoglobin A1c 6.4 H (4.0-6.0) % Calcium 9.1 (8.4-10.2) mg/dL Magnesium 1.8 (1.6-2.3) mg/dL Total Bilirubin 0.6 (0.2-1.3) mg/dL AST 28 (17-59) IU/L ALT 30 (<50) IU/L Alkaline Phosphatase 85 (38-126) U/L Total Creatine Kinase 149 (55-170) U/L Troponin I 0.024 0.020 (0.01-0.034) ng/mL NT-Pro-B Natriuret Pep 633 H (<125) pg/mL Total Protein 7.6 (6.3-8.2) g/dL Albumin 4.3 (3.5-5.0) g/dL Globulin 3.3 (1.7-4.1) g/dL Albumin/Globulin Ratio 1.3 (1.0-2.8) Lipase 73 (23-300) U/L Imaging Data Chest x-ray: Radiologist's Impression: Close Chest X-Ray (Signed) Kapil Graves - 02/13/24 Launch?Image [place] [id number] XRay Report Signed Patient: Dexter Hoover MR#: [id number] : 1960 Acct:[id number] Age/Sex: 63 / M Date of Service: 02/13/24 Loc: ED Accession Number: [id number] Procedure: XR chest 1V Ordering Provider: Britton Jose MD PROCEDURE: XR CHEST 1V INDICATIONS: chest pain TECHNIQUE: One view of the chest was acquired. COMPARISON: [facility], , XR CHEST 2V, 02/08/2023, 7:43. FINDINGS: Surgical changes and devices: None. Lungs and pleura: Lungs are clear. No pleural effusions or pneumothorax. Mediastinum: Mediastinal contours appear normal. Heart size is normal. Bones and chest wall: No suspicious bony lesions. Overlying soft tissues appear unremarkable. IMPRESSION: No acute cardiopulmonary abnormality is seen. Dictated by: Kapil Graves M.D. on 02/13/2024 at 10:28 Approved by: Kapil Graves M.D. on 02/13/2024 at 10:28 CT scan - head: Radiologist's Impression: Close Head/Neck CTA 02/13/[address] (Signed) Tigre Butler - 02/13/24 Chest X-Ray (Signed) Kapil Graves - 02/13/24 Launch?[place] [address] CT Scan Report Signed Patient: Dexter Hoover MR#: [id number] : 1960 Acct:[id number] Age/Sex: 63 / M Date of Service: 02/13/24 Loc: ED Accession Number: [id number] Procedure: CT head/brain wo con Ordering Provider: Britton Jose MD PROCEDURE: CT HEAD/BRAIN WO CON INDICATIONS: viz darkening, ?new dx Afib TECHNIQUE: Noncontrast 4.5 mm thick angled axial sections acquired from the foramen magnum to the vertex, with coronal and sagittal reformats. For radiation dose reduction, the following was used: automated exposure control, adjustment of mA and/or kV according to patient size. COMPARISON: [facility], CT, CT HEAD/BRAIN WO CON, 01/26/2021, 9:21. FINDINGS: Image quality: Diagnostic. CSF spaces: Basal cisterns are patent. No extra-axial fluid collections. Ventricles are normal in size and shape. Brain: No midline shift. No intracranial masses or hemorrhage. Lynch-white matter interface is normal. Skull and face: Calvarium and visualized facial bones are intact, without suspicious lesions. Small scalp contusion along the anterior frontal calvarium. Sinuses: Visualized sinuses and mastoids are clear. IMPRESSION: No acute intracranial pathology. Dictated by: Tigre Butler M.D. on 02/13/2024 at 10:51 Approved by: Tigre Butler M.D. on 02/13/2024 at 10:52 CTA - brain/neck: Radiologist's Impression: Dexter Hoover??63??M??1960 ? Allergy/Adv: No Known Drug Allergies (More??) Close Head/Neck CTA (Signed) Tigre Butler - 02/13/[address] (Signed) LukeTigre - 02/13/24 Chest X-Ray (Signed) StarKapil - 02/13/24 Chest X-Ray (Signed) Austyn Turkn - 02/08/23 Knee MRI (Signed) Calvin Brower - 10/27/22 Chest X-Ray (Signed) EdmondTed carrera - 08/05/21 Head/Neck CTA (Signed) Jared Lin - 01/26/21 Chest X-Ray (Signed) EdmondRgTed - 01/26/[address] (Signed) JeanRoberto - 01/26/21 Knee MRI (Signed) Emmanuel Álvarez - 03/22/18 Launch?Image [address] [address] [address] Scan Report Signed Patient: Dexter Hoover MR#: [id number] : 1960 Acct:[id number] Age/Sex: 63 / M Date of Service: 02/13/24 Loc: ED Accession Number: [id number] Procedure: CT angio head and neck Ordering Provider: Britton Jose MD PROCEDURE: CT ANGIO HEAD AND NECK INDICATIONS: visual symptoms TECHNIQUE: After the administration of intravenous contrast, 1 mm thick sections acquired from the aortic arch through the [place]. 3-dimensional qqqekbd-pkkirnlqu-uchqrklrck (MIP) and/or volume rendering reformats were acquired of the central intracranial vasculature and neck separately. For radiation dose reduction, the following was used: automated exposure control, adjustment of mA and/or kV according to patient size. COMPARISON: [facility], CT, CT ANGIO HEAD AND NECK, 01/26/2021, 9:37. FINDINGS: Image quality: Diagnostic. BRAIN: No significant change since same day CT. HEAD CT ANGIOGRAPHY: Anterior circulation: Intracranial internal carotid arteries are normal in size and flow. The flow within the paired anterior cerebral arteries is normal and symmetric. The flow within the middle cerebral arteries is normal and symmetric. The anterior communicating artery is seen. No aneurysms are seen. Posterior circulation: Visualized portions of the vertebral arteries demonstrate normal caliber, and join to form a normal appearing basilar artery. Flow within the posterior cerebral arteries is normal and symmetric. No aneurysms are seen. NECK CT ANGIOGRAPHY: Carotid system: The great vessels demonstrate a conventional anatomy as they arise from the aortic arch. The origins of the common carotid arteries appear patent. The common carotid arteries demonstrate normal caliber and courses. The bifurcation regions are both widely patent. The internal carotid arteries demonstrate normal calibers and courses. Posterior circulation: The origins of the vertebral arteries both appear widely patent. The more superior extracranial portions of both vertebral arteries also demonstrate normal courses and calibers. They join to form a normal appearing basilar artery. Soft tissues: Visualized neck soft tissues demonstrate no suspicious abnormalities. Bones: No suspicious bony lesions. Visualized cervical spine appears normally aligned. IMPRESSION: No significant intracranial arterial abnormality is seen. No significant abnormality is seen within the arteries of the neck. Any quantitative measurements of stenosis were performed using NASCET criteria. Dictated by: Tigre Butler M.D. on 02/13/2024 at 10:53 Approved by: Tigre Butler M.D. on 02/13/2024 at 10:55 ECG Data Attestation: I personally reviewed and interpreted this ECG as follows: Interpretation: Atrial fibrillation with rate 93, no obvious ST segment elevation or depression changes. Ventricular response rate 93 noted. QRS 110, QTC 492. MDM Narrative Medical decision making narrative: 63-year-old male with 2 days duration left-sided chest pain, history of reported MT, with negative workup 2019, no recent stress testing or cardiac catheterization, with similar duration intermittent ?dark? vision bilateral eye merino, some radiation of pain to the left arm. EKG screening shows atrial fibrillation, possible new diagnosis, patient does not recognize this rhythm. He has not taking blood thinner medications. Given aspirin here. Initial troponin negative. Chest x-ray unremarkable. Regarding visual associated symptoms, consider stroke, CT head study pending. CT angiogram studies ordered. CT head no acute changes. See radiology report. MRI brain ordered. Patient did not tolerate positioning for MRI study. We will repeat interval troponin, consider inpatient evaluation for his chest pain, possible stress testing, could also consider interval repeat CT head. PCP Hawa, we will contact after interval troponin results available. Consider anticoagulation for new diagnosis atrial fibrillation, currently not having fast ventricular response. Interval troponin also low, not increasing. Consider further workup such as interval CT head scan 24 hours, monitoring as an inpatient, coordination of cardiac stress testing, inpatient admission, however patient feels better and would like to go home, seems do willing to start Eliquis. Case discussed with cross cover physician Dr. Roberts, who will relay information to PCP Hawa who did not respond to attempts at contact during regular weekday hours. Dr. Roberts stated that he would relay information to PCP Hawa, to help expedite close follow up. Prescription for Eliquis sent to his pharmacy. Return precautions discussed. Critical Care Time Critical Care Time Critical Care Time: Yes Total Critical Care Time: 31 Attestation: The high probability of a clinically significant, sudden or life threatening deterioration of the [cardiopulmonary, cerebrovascular, neurologic] system(s) required my full and direct attention, intervention and personal management. The aggregate critical care time was [31] minutes. This time is in addition to time spent performing reported procedures but includes the following: [x] Data Review and interpretation [x] Patient assessment and monitoring of vital signs [x] Documentation [x] Medication orders and management Discharge Plan Departure Patient Disposition: Home Clinical Impression: Chest pain, Atrial fibrillation, new onset, Hyperglycemia Activity Restrictions/Additional Instructions: Chest discomfort of unclear cause, EKG showed atrial fibrillation but not in fast ventricular response, apparently this might be a new diagnosis for you, we could not find any comparison studies to show alternate rhythm or previous atrial fibrillation. You also had some difficulties with vision, elevated blood sugar to 60s noted, this can cause blurred vision but not lack of any vision, no ?darkening? like symptoms of both eyes as you described. Consider stroke. CT scan of the head noncontrast study was done and was negative, CT angiogram of the neck vessels of the head in the neck were done which showed no acute or significant narrowing changes. We attempted MRI of the brain but you did not tolerate positioning in the scanner. We talked about admission for telemetry and interval repeat noncontrast CT head study tomorrow, and consideration for further chest pain workup such as a stress test, you declined inpatient further monitoring now. You felt better and wanted to go home for now. Your primary doctor is Dr. Shaikh, who unfortunately did not respond to attempts at phone call today. We have talked to Dr. Alejandra jordan, who would relay information to your primary doctor, to hopefully expedite further workup as an outpatient. Atrial fibrillation is a risk factor for stroke, consider Eliquis anticoagulation, we will send prescription to your pharmacy. Recheck in close follow up with your regular doctor Hawa, return to this/nearest emergency department for any change worsening symptoms or any concerns prior Prescriptions: New Eliquis 5 mg tablet 5 mg PO BID Qty: 60 0RF No Action hydrochlorothiazide 12.5 mg tablet 12.5 mg PO DAILY Qty: 90 3RF amlodipine 10 mg tablet 10 mg PO DAILY Qty: 90 3RF lisinopril 20 mg tablet 20 mg PO DAILY Qty: 90 3RF gabapentin 300 mg capsule 300 mg PO BEDTIME Qty: 90 3RF Referrals: Adan Shaikh MD [Primary Care Provider] - Stand Alone Forms: Patient Portal/API
[2024-02-13 09:52] LABS: Add Manual Diff / Slide Review NO; Basophils Absolute Auto 100 /uL (0-100); Basophils Percent Auto 1.3 % (0-2); Eosinophils Absolute Auto 100 /uL (0-450); Eosinophils Percent Auto 1.9 % (2-4); Hematocrit 43.4 % (41-53); Hemoglobin 15.2 g/dL (13.5-17.5); Lymphocytes Absolute Auto 1600 /uL (1100-4500); Lymphocytes Percent Auto 21.4 % (25-40); Mean Corpuscular Hemoglobin 30.3 PG (26-34); Mean Corpuscular Volume 86.5 fL (80-100); Monocytes Absolute Auto 500 /uL (0-900); Monocytes Percent Auto 6.5 % (3-14); Neutrophils Absolute Auto 5300 /uL (1500-7000); Neutrophils Percent Auto 68.9 % (50-75); Platelet Count 205 X10^3/uL (150-400); Red Blood Cell Count 5.02 X10^6/uL (4.5-5.9); Red Cell Distribution Width 13.3 % (11.6-14.8); White Blood Cell Count 7.6 X10^3/uL (4.5-11.0)
[2024-02-13 10:02] LABS: INR 1.1 (0.9-1.3); Prothrombin Time 12.7 SECONDS (9.4-12.5)
[2024-02-13 10:05] LABS: PTT Partial Thromboplastin Tim 36 SECONDS (25.1-36.5)
[2024-02-13 10:10] LABS: Alanine Aminotransferase 30 IU/L (<50); Albumin 4.3 g/dL (3.5-5.0); Albumin Globulin Ratio 1.3 (1.0-2.8); Alkaline Phosphatase 85 U/L (38-126); Aspartate Aminotransferase 28 IU/L (17-59); BUN Creatinine Ratio 18.9 (6-22); Bilirubin Total 0.6 mg/dL (0.2-1.3); Blood Urea Nitrogen 18 mg/dL (9-20); Calcium 9.1 mg/dL (8.4-10.2); Carbon Dioxide 24 mmol/L (22-32); Chloride 101 mmol/L (98-107); Creatine Kinase 149 U/L (55-170); Estimated Glomerular Filt Rate > 60 mL/min (>60); Globulin 3.3 g/dL (1.7-4.1); Glucose 268 mg/dL (80-110); HEMOLYSIS 18 (0-50); Lipase 73 U/L (23-300); Magnesium 1.8 mg/dL (1.6-2.3); Potassium 3.7 mmol/L (3.4-5.1); Sodium 134 mmol/L (137-145); Total Protein 7.6 g/dL (6.3-8.2)
[2024-02-13 10:21] LABS: NT-proBNP (BNP-Adult 18+) 633 pg/mL (<125); Troponin I 0.024 ng/mL (0.01-0.034)
--- NOTE | 2024-02-13 10:31 | DI.CT.S_ITS ---
PROCEDURE: CT HEAD/BRAIN WO CON INDICATIONS: viz darkening, ?new dx Afib TECHNIQUE: Noncontrast 4.5 mm thick angled axial sections acquired from the foramen magnum to the vertex, with coronal and sagittal reformats. For radiation dose reduction, the following was used: automated exposure control, adjustment of mA and/or kV according to patient size. COMPARISON: [facility], CT, CT HEAD/BRAIN WO CON, 01/26/2021, 9:21. FINDINGS: Image quality: Diagnostic. CSF spaces: Basal cisterns are patent. No extra-axial fluid collections. Ventricles are normal in size and shape. Brain: No midline shift. No intracranial masses or hemorrhage. Lynch-white matter interface is normal. Skull and face: Calvarium and visualized facial bones are intact, without suspicious lesions. Small scalp contusion along the anterior frontal calvarium. Sinuses: Visualized sinuses and mastoids are clear. IMPRESSION: No acute intracranial pathology. Dictated by: Tigre Butler M.D. on 02/13/2024 at 10:51 Approved by: Tigre Butler M.D. on 02/13/2024 at 10:52
--- NOTE | 2024-02-13 10:32 | DI.CT.S_ITS ---
PROCEDURE: CT ANGIO HEAD AND NECK INDICATIONS: visual symptoms TECHNIQUE: After the administration of intravenous contrast, 1 mm thick sections acquired from the aortic arch through the [place] of [place]. 3-dimensional wzhejca-edviztrxn-llbxlsindy (MIP) and/or volume rendering reformats were acquired of the central intracranial vasculature and neck separately. For radiation dose reduction, the following was used: automated exposure control, adjustment of mA and/or kV according to patient size. COMPARISON: [facility], CT, CT ANGIO HEAD AND NECK, 01/26/2021, 9:37. FINDINGS: Image quality: Diagnostic. BRAIN: No significant change since same day CT. HEAD CT ANGIOGRAPHY: Anterior circulation: Intracranial internal carotid arteries are normal in size and flow. The flow within the paired anterior cerebral arteries is normal and symmetric. The flow within the middle cerebral arteries is normal and symmetric. The anterior communicating artery is seen. No aneurysms are seen. Posterior circulation: Visualized portions of the vertebral arteries demonstrate normal caliber, and join to form a normal appearing basilar artery. Flow within the posterior cerebral arteries is normal and symmetric. No aneurysms are seen. NECK CT ANGIOGRAPHY: Carotid system: The great vessels demonstrate a conventional anatomy as they arise from the aortic arch. The origins of the common carotid arteries appear patent. The common carotid arteries demonstrate normal caliber and courses. The bifurcation regions are both widely patent. The internal carotid arteries demonstrate normal calibers and courses. Posterior circulation: The origins of the vertebral arteries both appear widely patent. The more superior extracranial portions of both vertebral arteries also demonstrate normal courses and calibers. They join to form a normal appearing basilar artery. Soft tissues: Visualized neck soft tissues demonstrate no suspicious abnormalities. Bones: No suspicious bony lesions. Visualized cervical spine appears normally aligned. IMPRESSION: No significant intracranial arterial abnormality is seen. No significant abnormality is seen within the arteries of the neck. Any quantitative measurements of stenosis were performed using NASCET criteria. Dictated by: Tigre Butler M.D. on 02/13/2024 at 10:53 Approved by: Tigre Butler M.D. on 02/13/2024 at 10:55
[2024-02-13 10:55] LABS: Hemoglobin A1C% w Est Avg Glu 6.4 % (4.0-6.0)
[2024-02-13] MEDS: MORPHINE 4 MG/ML INJ IV (10:57)
== END 2024-02-13 13:11 | disposition home or self-care (01) ==
PROVIDERS: Emergency Provider Emergency Medicine; PCP Internal Medicine
DX: I48.91 Unspecified atrial fibrillation (principal); R07.9 Chest pain, unspecified; E11.65 Type 2 diabetes mellitus with hyperglycemia; R42 Dizziness and giddiness; H53.9 Unspecified visual disturbance; I44.7 Left bundle-branch block, unspecified; I25.2 Old myocardial infarction
CPT/HCPCS: 36415; 70450; 70496; 70498; 71045; 80053; 82550; 83036; 83690; 83735; 83880; 84484; 85025; 85610; 85730; 93005; 93010; 96374; 99284; 99291; J2270; Q9967

== ENCOUNTER → 2024-03-04 06:34 | Outpatient (CLI) | payer OTHER, SELFPAY ==
[2024-03-04 08:35] LABS: Hemoglobin A1C% w Est Avg Glu 6.5 % (4.0-6.0)
[2024-03-04 08:52] LABS: Alanine Aminotransferase 32 IU/L (<50); Albumin 4.1 g/dL (3.5-5.0); Albumin Globulin Ratio 1.4 (1.0-2.8); Alkaline Phosphatase 71 U/L (38-126); Aspartate Aminotransferase 30 IU/L (17-59); BUN Creatinine Ratio 17.5 (6-22); Bilirubin Total 0.8 mg/dL (0.2-1.3); Blood Urea Nitrogen 17 mg/dL (9-20); Calcium 9.6 mg/dL (8.4-10.2); Carbon Dioxide 28 mmol/L (22-32); Chloride 102 mmol/L (98-107); Cholesterol 190 mg/dL (140-199); Estimated Glomerular Filt Rate > 60 mL/min (>60); Globulin 2.9 g/dL (1.7-4.1); Glucose 135 mg/dL (80-110); HDL Cholesterol 30 mg/dL (40-60); HEMOLYSIS < 15 (0-50); LDL Cholesterol Calculated 135 mg/dL (<100); Potassium 3.9 mmol/L (3.4-5.1); Sodium 140 mmol/L (137-145); Triglycerides 127 mg/dL (35-150)
[2024-03-04 09:18] LABS: Prostate Specific Antigen Scrn 1.22 ng/mL (0.1-4.0)
== END ==
PROVIDERS: PCP Internal Medicine; Referring Provider Internal Medicine; Visit Provider Internal Medicine
DX: E11.9 Type 2 diabetes mellitus without complications (principal); N18.31 Chronic kidney disease, stage 3a; Z12.5 Encounter for screening for malignant neoplasm of prostate; I49.9 Cardiac arrhythmia, unspecified; I12.9 Hypertensive chronic kidney disease with stage 1 through stage 4 chronic kidney disease, or unspecified chronic kidney disease
CPT/HCPCS: 36415; 80053; 80061; 83036; G0103

== ENCOUNTER → 2024-03-27 07:22 | Outpatient (CLI) | payer OTHER, SELFPAY ==
--- NOTE | 2024-03-27 07:23 | DI.ECHO.S_ITS ---
[facility] : : [address] : : [place] : : [id number] : : Phone: [phone] Echocardiogram Report + + :Name: ELSY LEIJA Study Date: 03/27/2024 Height: 71 in : :[facility] ReadingLocation: Weight: 310 lb : : Gender: Male BSA: 2.5 m2 : :: 1960 Age: 63 yrs BP: 135/100 mmHg: :Reason For Study: CHEST PAIN : :Ordering Physician: NIKITA, : :NELLI Patel Performed By: Skye Wallace : :Referring: NELLI SHELTON : + + Interpretation Summary 1. The left ventricular contracted is normal. Estimated ejection fraction is 50 to 55% with no segmental wall motion abnormalities. Moderate concentric LVH. Unable to comment on diastolic function. 2. The right ventricular contractility is normal. 3. Left atrial enlargement present. Right ventricular cavity is also mildly enlarged. 4. No significant valvular abnormalities. 5. No obvious intracardiac shunts. 6. No obvious ventricular masses nor thrombi. 7. No hemodynamically significant pericardial effusion. 8. Normal right-sided filling pressures. Conclusion: Normal biventricular systolic function with no significant valvular abnormalities. Procedure: A two-dimensional transthoracic echocardiogram with color flow and Doppler was performed. The study quality was technically difficult. There is no prior echocardiogram noted for this patient. The patient was in atrial fibrillation with heart rates between 76-96 bpm during the exam. Left Ventricle: The left ventricle is normal in size. There is moderate concentric left ventricular hypertrophy. The ejection fraction is estimated to be 50-55%. Diastolic function could not be accurately assessed due to atrial fibrillation. Right Ventricle: The right ventricle is mildly dilated. Right ventricular systolic function is at the lower limits of normal. Atria: The left atrium is mildly dilated. Right atrial size is normal. There is no Doppler evidence for an interatrial shunt. Mitral Valve: The mitral valve is normal in structure and function. There is trace mitral regurgitation. Aortic Valve: The aortic valve is trileaflet. The aortic valve opens well. There is no aortic valve stenosis. No aortic regurgitation is present. Tricuspid Valve: The tricuspid valve is normal in structure and function. There is trace tricuspid regurgitation. The right ventricular systolic pressure is estimated to be at least 39 mmHg based on an estimated right atrial pressure of 8 mm Hg. Pulmonic Valve: The pulmonic valve leaflets are thin and pliable; valve motion is normal. There is trace pulmonic regurgitation. Great Vessels: The aortic root is normal size. The dimensions of the ascending aorta are normal. The IVC is dilated (diameter is greater than 2.1 cm) yet it collapses greater than 50% with a sniff. This suggests a right atrial pressure of 8 mm Hg. Pericardium/ Pleura There is a trivial pericardial effusion noted. There is no pleural effusion. MMode/2D Measurements & Calculations LVIDd: 4.5 cm LVOT diam: 2.2 cm LVIDs: 3.4 cm Ao root diam: 3.6 cm FS: 24.9 % asc Aorta Diam: 3.8 cm EPSS: 1.2 cm Ao Arch Diam (Prox Trans): 3.4 cm IVSd: 1.4 cm LVPWd: 1.4 cm LV carrington. diameter/BSA (cm/m^2): 1.8 LV sys. diameter/BSA (cm/m^2): 1.3 LA A2 area: 28.6 cm2 RA long axis: 6.3 cm LA A4 area: 31.3 cm2 RA area: 24.4 cm2 LA length (vol): 7.1 cm RA vol: 80.7 ml LA vol: 106.7 ml RA : 31.8 ml/m2 LA vol index: 42.0 ml/m2 IVC diam: 2.1 cm RVD1 (basal): 4.2 cm RVD2 (mid): 3.5 cm TAPSE: 1.6 cm Doppler Measurements & Calculations Ao V2 max: 121.4 cm/sec LVOT Max Kavon: 72.4 cm/sec Ao V2 mean: 83.0 cm/sec LV V1 max P.1 mmHg Ao max P.9 mmHg LV V1 VTI: 13.2 cm Ao mean P.1 mmHg PENNIE(I,D): 2.4 cm2 Ao V2 VTI: 20.9 cm PENNIE(V,D): 2.3 cm2 sev ratio: 0.63 PENNIE indexed to BSA (cm^2/m^2): 0.96 MV E max kavon: 119.7 cm/sec TR max kavon: 279.3 cm/sec MV A max kavon: 1.3 cm/sec TR max P.2 mmHg MV E/A: 94.5 PA V2 max: 88.1 cm/sec Med Peak E' Kavon: 7.9 cm/sec PA V2 mean: 62.3 cm/sec E/E' med: 15.2 PA mean P.7 mmHg Lat Peak E' Kavon: 7.7 cm/sec PA pr(Accel): 22.5 mmHg E/E' lat: 15.5 E/e' average: 15.3 MV dec time: 0.15 sec MVA(VTI): 2.5 cm2 MV V2 mean: 71.2 cm/sec SV(LVOT): 51.2 ml MV mean P.4 mmHg MV V2 VTI: 20.6 cm Reading Physician:
== END ==
LOC: ECHO 07:23
PROVIDERS: PCP Internal Medicine; Referring Provider Internal Medicine; Visit Provider Internal Medicine
DX: I48.91 Unspecified atrial fibrillation (principal); R07.9 Chest pain, unspecified; I10 Essential (primary) hypertension
CPT/HCPCS: 93306

== ENCOUNTER 2024-07-30 14:32 | Emergency (ER) | payer OTHER, SELFPAY ==
[2024-07-30 14:38] VITALS: BP 147/77; PULSE 66; RESP 18; TEMP 37.1; O2SAT 97; BMI 45.9
== END 2024-07-30 17:36 | disposition left against medical advice (07) ==
PROVIDERS: Emergency Provider Emergency Medicine; PCP Internal Medicine
DX: L76.22 Postprocedural hemorrhage of skin and subcutaneous tissue following other procedure (principal)
CPT/HCPCS: 99281

== ENCOUNTER → 2024-10-06 14:06 | Outpatient (CLI) | payer OTHER, SELFPAY ==
[2024-10-06 15:03] LABS: Creatinine Urine Random 92.41 mg/dL
[2024-10-06 15:09] LABS: Microalbumin Urine Random 0.6 mg/dL (0-1.6)
== END ==
PROVIDERS: PCP Internal Medicine; Referring Provider Internal Medicine; Visit Provider Internal Medicine
DX: E11.9 Type 2 diabetes mellitus without complications (principal); I12.9 Hypertensive chronic kidney disease with stage 1 through stage 4 chronic kidney disease, or unspecified chronic kidney disease; N18.31 Chronic kidney disease, stage 3a
CPT/HCPCS: 36415; 82043; 82570; 83036

== ENCOUNTER 2024-11-16 23:09 | Emergency (ER) | payer OTHER, SELFPAY ==
[2024-11-16 23:20] VITALS: BP 172/85; PULSE 95; RESP 16; TEMP 36.9; O2SAT 95; BMI 44.4
[2024-11-17 00:06] VITALS: O2SAT 93
[2024-11-17 00:07] VITALS: BP 183/88; PULSE 60; RESP 20; O2SAT 95
[2024-11-17 00:30] VITALS: PULSE 57; RESP 18; O2SAT 94
--- NOTE | 2024-11-17 00:32 | ED.BACK ---
HPI - Back Pain/Injury General Chief Complaint: Back Pain/Injury Stated Complaint: backpain, legs are feeling numb Time Seen by Provider: 11/17/24 00:24 Source: patient History of Present Illness HPI Narrative: 64-year-old male with history of paroxysmal atrial fibrillation on Eliquis anticoagulation, no history of previous back surgeries, no back injuries, no recent injections, was power washing yesterday, overnight he has had low back pain and mid upper back pain. Some tingling to posterior legs right and left. No incontinence of urine or stool. No perineal region or scrotal genital numbness or tingling. He has hydrocodone at home, not helping. He has not tried any other medications. He would like to try muscle relaxants. Related Data Home Medications ?Medication ?Instructions ?Recorded ?Confirmed colchicine 0.6 mg tablet 0.6 mg PO BID 08/18/24 11/16/24 hydralazine 25 mg tablet 25 mg PO TID 08/18/24 11/16/24 hydrochlorothiazide 25 mg tablet 25 mg PO DAILY 08/18/24 11/16/24 ibuprofen 400 mg tablet 400 mg PO Q8H 08/18/24 10/06/24 lisinopril 40 mg tablet 40 mg PO DAILY 08/18/24 11/16/24 pantoprazole 40 mg tablet,delayed 40 mg PO DAILY 08/18/24 11/16/24 release acetaminophen 650 mg 650 mg PO Q4H PRN pain 10/03/24 11/16/24 tablet,extended release amiodarone 200 mg tablet 200 mg PO DAILY 10/03/24 11/16/24 hydrocodone 5 mg-acetaminophen 325 1 tab PO Q4H PRN pain 10/03/24 11/16/24 mg tablet magnesium oxide 400 mg PO DAILY 10/03/24 11/16/24 nitroglycerin 0.4 mg sublingual 0.4 mg sublingual Q5-15M PRN chest 10/03/24 11/16/24 tablet pain Previous Rx's ?Medication ?Instructions ?Recorded amlodipine 10 mg tablet 10 mg PO DAILY #90 tabs 12/10/23 apixaban 5 mg tablet (Eliquis) 5 mg PO BID #180 tabs 04/07/24 methocarbamol 500 mg tablet 500 mg PO TID 7 days #21 tabs 06/09/25 Allergies Allergy/AdvReac Type Severity Reaction Status Date / Time cortisone Allergy Verified 11/16/24 23:19 Patient History Medical History (Updated 11/17/24 @ 00:44 by Britton Jose MD) Paroxysmal atrial fibrillation Persistent atrial fibrillation Diabetic peripheral neuropathy Chronic renal failure, stage 3a Diabetes type 2, controlled Morbid obesity Hyperglycemia Kidney stones (~2011) Cardiac arrhythmia (~2017) Chronic renal failure, stage 2 (mild) Obstructive sleep apnea of adult (~2018) Left ventricular hypertrophy Essential hypertension (~1999) Surgical History (Updated 10/06/24 @ 13:45 by Adan Shaikh MD) S/P placement of cardiac pacemaker (~09/2024) S/P ablation of atrial fibrillation (~07/2024) Anesthesia H/O right knee surgery (~03/2018) Family History Father Bronchitis Mother Diabetes mellitus History of heart disease Sister Cancer Social History (System 02/05/23 @ 07:35 by Shakeel Hartley) Smoking Status: Never smoker Smoking Status: Never smoker alcohol intake frequency: holidays/special occasions only Exam Narrative Exam Narrative: GENERAL: Well-developed patient, in mild distress. HEAD: Atraumatic. Normocephalic. EYES: Pupils equal round and reactive. Extraocular motions intact. No scleral icterus. No injection or drainage. ENT: Nose without bleeding, purulent drainage. Throat without erythema, tonsillar hypertrophy or exudate. Airway patent. NECK: Trachea midline. Non tender CARDIOVASCULAR: Regular rate and rhythm without murmurs, gallops, or rubs. RESPIRATORY: Clear to auscultation. Breath sounds equal bilaterally. No wheezes, rales, or rhonchi. GASTROINTESTINAL: Abdomen soft, non-tender, nondistended. EXTREMITIES: No edema or joint tenderness. BACK: Nontender without deformity or crepitance. No flank tenderness. No tenderness midline lumbar or thoracic, some lumbar paraspinal tenderness right and left. Straight leg raise right and left 60? without difficulty or leg pain or back pain. NEURO: AOx3. Motor functions grossly nonfocal SKIN: No rash or erythema of visible areas Initial Vital Signs Initial Vital Signs: Vital Signs Temperature 98.4 F 11/16/24 23:20 Pulse Rate 95 H 11/16/24 23:20 Respiratory Rate 16 11/16/24 23:20 Blood Pressure 172/85 H 11/16/24 23:20 Pulse Oximetry 95 11/16/24 23:20 Oxygen Delivery Method Room Air 11/16/24 23:20 Course Orders Ordered: Discontinued Medications Hydrocodone Bitart/Acetaminophen (Hydrocodone/Acet 5/325 Tablet) 1 tab PO NOW ONE Stop: 11/17/24 00:40 Last Admin: 11/17/24 00:46 Dose: 1 tab Documented By: GIBRAN Methocarbamol (Methocarbamol 500 Mg Tablet) 500 mg PO NOW ONE Stop: 11/17/24 00:40 Last Admin: 11/17/24 00:46 Dose: 500 mg Documented By: GIBRAN Vital Signs Vital signs: Vital Signs - 8 hr 11/16/24 23:20 11/17/24 00:06 11/17/24 00:07 Temperature 98.4 F Pulse Rate 95 H Respiratory Rate 16 Blood Pressure 172/85 H 183/88 H Pulse Oximetry 95 93 Oxygen Delivery Method Room Air 11/17/24 00:07 11/17/24 00:30 Temperature Pulse Rate 60 57 L Respiratory Rate 20 18 Blood Pressure Pulse Oximetry 95 94 Oxygen Delivery Method Room Air MDM - Back Pain/Injury MDM Narrative Medical decision making narrative: Low back pain after power washing, straight leg raise exam reassuring, no tenderness lumbar thoracic midline or paraspinous musculature. Can ambulate in the room, no bowel or bladder complaints. Offered CT lumbar imaging, declined. Trial of medications. We will avoid NSAIDs for now given Eliquis chronic anticoagulation due to paroxysmal atrial fibrillation. He has hydrocodone to use at home, last dose many hours ago, given oral dose now per request. We will add muscle relaxant methocarbamol, 1st dose now, prescription sent to his pharmacy. Recheck symptoms with PCP advised in the next 2 days. Return precautions discussed. Home with . Discharge Plan Departure Patient Disposition: Home Clinical Impression: Lumbar strain Instructions: DI for Low Back Pain Activity Restrictions/Additional Instructions: History of paroxysmal atrial fibrillation on Eliquis anticoagulation. Recent power washing. Increasing low back pain in mid upper back pain. Able to ambulate. Straight leg raise testing was good. No bowel or bladder incontinence symptoms. We discussed advanced imaging CT scanning, declined for now. MRI lumbar spine not available at this hour. Avoid NSAIDs such as ibuprofen and naproxen if you are on blood thinner medications, due to increased risks with gastrointestinal bleeding side effects. Trial of muscle relaxant, Robaxin/methocarbamol given, prescription sent to your pharmacy. Continue taking your hydrocodone pain medication. Recheck symptoms with your regular doctor in the next couple of days. Return to this/nearest emergency department if change worsening symptoms or any concerns prior. Prescriptions: New methocarbamol 500 mg tablet 500 mg PO TID 7 Days Qty: 21 0RF No Action amlodipine 10 mg tablet 10 mg PO DAILY Qty: 90 3RF Eliquis 5 mg tablet 5 mg PO BID Qty: 180 3RF amiodarone 200 mg tablet 200 mg PO DAILY magnesium oxide 400 mg magnesium capsule 400 mg PO DAILY nitroglycerin 0.4 mg tablet, sublingual 0.4 mg sublingual Q5-15M PRN (Reason: chest pain) Rx Instructions: do not exceed 3 doses per episode hydrocodone-acetaminophen 5-325 mg tablet 1 tab PO Q4H PRN (Reason: pain) acetaminophen 650 mg tablet extended release 650 mg PO Q4H PRN (Reason: pain) lisinopril 40 mg tablet 40 mg PO DAILY hydrochlorothiazide 25 mg tablet 25 mg PO DAILY pantoprazole 40 mg tablet,delayed release (DR/EC) 40 mg PO DAILY hydralazine 25 mg tablet 25 mg PO TID colchicine 0.6 mg tablet 0.6 mg PO BID Patient Comments: [NO ORIGINAL SIG] ibuprofen 400 mg tablet 400 mg PO Q8H Referrals: Adan Shaikh MD [Primary Care Provider, Internal Medicine] Stand Alone Forms: Patient Portal/API
[2024-11-17] MEDS: HYDROCODONE/ACET 5/325 TABLET 1 TAB PO (00:46)
[2024-11-17] MEDS: methocarbamoL 500 MG TABLET PO (00:46)
== END 2024-11-17 00:57 | disposition home or self-care (01) ==
PROVIDERS: Emergency Provider Emergency Medicine; PCP Internal Medicine
DX: S39.012A Strain of muscle, fascia and tendon of lower back, initial encounter (principal); X58.XXXA Exposure to other specified factors, initial encounter; Y93.89 Activity, other specified; Z79.01 Long term (current) use of anticoagulants
CPT/HCPCS: 99283

== ENCOUNTER → 2025-02-24 14:13 | Outpatient (CLI) | payer OTHER, SELFPAY ==
--- NOTE | 2025-02-24 14:15 | DI.RAD.S_ITS ---
PROCEDURE: XR LUMBAR SPINE 2-3V INDICATIONS: back pain TECHNIQUE: 3 views of the lumbar spine were acquired. COMPARISON: None. FINDINGS: Lumbar spine curvature and alignment: Normal. Bones: There are no osseous abnormalities. Disc spaces: Mild T11-T12 T12-L1 L3-4 degenerative disc disease. Mild L5-S1 degenerative facet disease Facet disease Soft tissues: 6 mm calcification overlying the inferior pole the right kidney may represent a stone renal stone Renal stone. IMPRESSION: Mild degeneration Possible 6 mm right renal stone Dictated by: Adan Wu M.D. on 02/25/2025 at 12:05 Approved by: Adan Wu M.D. on 02/25/2025 at 12:06
== END ==
LOC: RAD 14:14
PROVIDERS: PCP Internal Medicine; Referring Provider Internal Medicine; Visit Provider Internal Medicine
DX: M47.817 Spondylosis without myelopathy or radiculopathy, lumbosacral region (principal); M51.34 Other intervertebral disc degeneration, thoracic region; M51.35 Other intervertebral disc degeneration, thoracolumbar region; M51.369 Other intervertebral disc degeneration, lumbar region without mention of lumbar back pain or lower extremity pain; M54.9 Dorsalgia, unspecified
CPT/HCPCS: 72100

== ENCOUNTER 2025-05-27 02:53 | Emergency (ER) | payer OTHER, SELFPAY ==
[2025-05-27] VITALS (7 sets, daily range): BP systolic 147–157; BP diastolic 69–74; PULSE 60; RESP 20–32; TEMP 36.6; O2SAT 94–98; BMI 45.1
--- NOTE | 2025-05-27 02:54 | DI.RAD.S_ITS ---
PROCEDURE: XR CHEST 1V INDICATIONS: cp TECHNIQUE: One view of the chest was acquired. COMPARISON: [facility], CR, XR CHEST 1V, 02/13/2024, 9:52. FINDINGS: Surgical changes and devices: Left chest wall pacemaker leads are in the region of right atrium and right ventricle. Lungs and pleura: Subtle increased opacity in left retrocardiac region is seen, a small left basilar infiltrate/atelectasis cannot be excluded. No pleural fusions or pneumothorax. Mediastinum: Mediastinal contours appear normal. Heart size is enlarged. Bones and chest wall: No suspicious bony lesions. Overlying soft tissues appear unremarkable. IMPRESSION: Finding may represent subtle left retrocardiac infiltrate/atelectasis. Clinical correlation and follow-up is recommended. No pleural effusion or pneumothorax. Cardiomegaly and mild congestion. No significant discrepancies. Dictated by: Calvin Brower M.D. on 05/27/2025 at 7:43 Approved by: Calvin Brower M.D. on 05/27/2025 at 7:44
--- NOTE | 2025-05-27 02:58 | ED_ITS ---
HPI - Chest Pain General Chief Complaint: Chest Pain Stated Complaint: Chest Pain, SOB, Headache, Congestion Time Seen by Provider: 05/27/25 02:54 History of Present Illness HPI narrative: Patient is a 64-year-old male with a past medical history of VT, paroxysmal AFib on Eliquis, with a pacemaker, status post ablation comes into the ED from home for evaluation of chest pain states that it started when he woke up at around 12:30 a.m., also states that he has been having some chest congestion, shortness breath, states that has been going on for the past few days, he states that he has also been feeling some chest congestion and sinus congestion and states that he was not sure if this is more secondary to flu-like symptoms or if he is having more cardiac issues. Patient states that he did take a nitro prior to arrival which improved his chest pain. He does state that the congestion has caused a slight dull generalized headache but denies any visual disturbance fever chills nausea vomiting abdominal pain or any other GI/ symptoms at this time. Patient states that in the past he has had cardioversions and is also due for another ablation by Dr. Melendez (cardiology at [facility]). Related Data Home Medications ?Medication ?Instructions ?Recorded ?Confirmed colchicine 0.6 mg tablet 0.6 mg PO BID 08/18/2402/24 hydralazine 25 mg tablet 25 mg PO TID 08/18/24 hydrochlorothiazide 25 mg tablet 25 mg PO DAILY 02/24/25 lisinopril 40 mg tablet 40 mg PO DAILY 08/18/2402/09 acetaminophen 650 mg 650 mg PO Q4H PRN pain 10/0302/24/25 tablet,extended release amiodarone 200 mg tablet 200 mg PO DAILY 10/03/24 magnesium oxide 400 mg PO DAILY 10/03/24 nitroglycerin 0.4 mg sublingual 0.4 mg sublingual Q5-1 5M PRN chest 10/03/24 02/24/25 tablet pain Previous Rx's ?Medication ?Instructions ?Recorded amlodipine 10 mg tablet 10 mg PO DAILY #90 tabs 02/02 apixaban 5 mg tablet (Eliquis) 5 mg PO BID #180 tabs 1 06/27/24 doxycycline hyclate 100 mg capsule 100 mg PO BID 5 day s #10 caps 05/27/25 Allergies Allergy/AdvReac Type Severity Reaction Status Date / Time cortisone Allergy Verified 05/27/25 03:05 Review of Systems Review of Systems Narrative: General: Denies fever, chills, weight loss HEENT: Denies headache, eye drainage, eye irritation, head trauma, sore throat, voice change Cardiovascular: Positive chest pain, denies palpitations, tachycardia Respiratory: Positive shortness of breath, denies cough, wheeze, stridor GI/: Denies any abdominal pain, nausea, vomiting, diarrhea, bright red blood per rectum, melanotic stools, urinary frequency, urinary retention, dysuria, hematuria MSK: Denies any joint pain, muscle pains, swelling Skin: Denies any rashes, lesions, discoloration Neuro: Denies any headache, lightheadedness, dizziness, fainting, weakness Psych: Denies SI/HI Patient History Medical History (Updated 05/27/25 @ 04:06 by Keshav Merchant DO) Paroxysmal atrial fibrillation Persistent atrial fibrillation Diabetic peripheral neuropathy Chronic renal failure, stage 3a Diabetes type 2, controlled Morbid obesity Hyperglycemia Kidney stones (~2011) Cardiac arrhythmia (~2017) Chronic renal failure, stage 2 (mild) Obstructive sleep apnea of adult (~2018) Left ventricular hypertrophy Essential hypertension (~1999) Surgical History (Updated 10/06/24 @ 13:45 by Adan Shaikh MD) S/P placement of cardiac pacemaker (~09/2024) S/P ablation of atrial fibrillation (~07/2024) Anesthesia H/O right knee surgery (~03/2018) Family History Father Bronchitis Mother Diabetes mellitus History of heart disease Sister Cancer Social History (System 02/05/23 @ 07:35 by Shakeel Hartley) Smoking Status: Never smoker alcohol intake frequency: holidays/special occasions only Exam Narrative Exam Narrative: General: Cooperative, well-developed, not in acute distress HEENT: Normocephalic, atraumatic, PERRLA, normal sclera, eyelids normal Neck: Active full range of motion, atraumatic Chest: Normal to inspection, negative crepitus, no overlying erythema ecchymosis Respiratory: Normal respiratory effort, not in acute respiratory distress, clear to auscultation bilaterally negative cough, wheeze, tachypnea, rhonchi, rales Cardiology: Regular rate rhythm negative gallop, murmur, rubs GI/: No tenderness to palpation, soft, non rigid, normal to inspection, exam deferred MSK: Full active range of motion in all 4 extremities, atraumatic, no tenderness to palpation of any bony prominences Skin: No rashes or lesions noted Neuro: Alert awake oriented x3, moves all 4 extremities spontaneously, cranial nerves intact, able to answer all questions appropriately follows commands appropriately Psych: Cooperative, negative suicidal or homicidal ideations Initial Vital Signs Initial Vital Signs: Vital Signs Pulse Rate 60 05/27/25 02:58 Respiratory Rate 27 H 05/27/25 02:58 Pulse Oximetry 98 05/27/25 02:58 Course Orders Ordered: ED Orders 05/27/25 02:54 XR chest 1V Stat EKG-12 Lead Stat EKG-12 Lead Stat 05/27/25 03:00 Complete Blood Count AUTO DIFF Stat Comprehensive Metabolic Panel Stat Lipase Stat Magnesium Stat NT-proBNP (BNP-Adult 18+) Stat PTT Partial Thromboplastin Vickey Stat Prothrombin Time INR Stat Troponin & CK Cardiac Panel Stat 05/27/25 03:04 Respiratory Panel (Film Array) Stat Vital Signs Vital signs: Vital Signs - 8 hr 05/27/25 02:58 05/27/25 03:00 05/27/25 03:00 Temperature Pulse Rate 60 60 Respiratory Rate 27 H 26 H Blood Pressure 147/71 H Pulse Oximetry 98 96 Oxygen Delivery Method 05/27/25 03:06 05/27/25 03:30 05/27/25 03:31 Temperature 97.8 F Pulse Rate 60 60 60 Respiratory Rate 23 23 20 Blood Pressure 147/71 H Pulse Oximetry 96 94 95 Oxygen Delivery Method Room Air Room Air 05/27/25 03:31 Temperature Pulse Rate Respiratory Rate Blood Pressure 153/69 H Pulse Oximetry Oxygen Delivery Method MDM - Chest Pain Lab Data 05/27/25 03:00 05/27/25 03:00 Labs: Lab Results 05/27/25 Range/Units 03:00 WBC 6.8 (4.5-11.0) X10^3/uL RBC 4.85 (4.5-5.9) X10^6/uL Hgb 14.5 (13.5-17.5) g/dL Hct 42.3 (41-53) % MCV 87.3 (80-100) fL MCH 29.8 (26-34) PG MCHC 34.2 (30-36) % RDW 13.3 (11.6-14.8) % Plt Count 207 (150-400) X10^3/uL Neut % (Auto) 63.8 (50-75) % Lymph % (Auto) 21.9 L (25-40) % Sierra % (Auto) 10.1 (3-14) % Eos % (Auto) 2.8 (2-4) % Baso % (Auto) 1.4 (0-2) % Neut # (Auto) 4300 (1008-3749) /uL Lymph # (Auto) 1500 (1234-2212) /uL Sierra # (Auto) 700 (0-900) /uL Eos # (Auto) 200 (0-450) /uL Baso # (Auto) 100 (0-100) /uL PT 13.1 H (9.4-12.5) SECONDS INR 1.2 (0.9-1.3) APTT 34 (25.1-36.5) SECONDS Sodium 141 (137-145) mmol/L Potassium 3.6 (3.4-5.1) mmol/L Chloride 106 (98-107) mmol/L Carbon Dioxide 27 (22-32) mmol/L BUN 18 (9-20) mg/dL Creatinine 1.06 (0.66-1.25) mg/dL Estimated GFR > 60 (>60) mL/min BUN/Creatinine Ratio 17.0 (6-22) Glucose 148 H (70-99) mg/dL Calcium 9.0 (8.4-10.2) mg/dL Magnesium 2.0 (1.6-2.3) mg/dL Total Bilirubin 0.4 (0.2-1.3) mg/dL AST 28 (17-59) IU/L ALT 35 (<50) IU/L Alkaline Phosphatase 67 (38-126) U/L Total Creatine Kinase 187 H (55-170) U/L Troponin I 0.039 H (0.01-0.034) ng/mL NT-Pro-B Natriuret Pep 531 H (<125) pg/mL Total Protein 7.5 (6.3-8.2) g/dL Albumin 4.3 (3.5-5.0) g/dL Globulin 3.2 (1.7-4.1) g/dL Albumin/Globulin Ratio 1.3 (1.0-2.8) Lipase 57 (23-300) U/L ECG Data Interpretation: EKG interpreted ED physician, atrially paced with prolonged AV conduction with PAC, QTC 473 no STEMI MDM Narrative Medical decision making narrative: 64-year-old male with a past medical history of VT, AFib on Eliquis, hypertension, comes into the ED from home for evaluation of chest pain, states it started at around 12:30 p.m. when he woke up. He states that he took a nitro which improved his chest pain. He states he has a history of cardioversion x2 and a ablation that did not hold for his AFib. Also states it has a pacemaker. He states that he is supposed to have another ablation in the next few weeks by Dr. Melendez of Cardiology at [facility]. According to patient he has also been having sinus congestion headache and chest congestion for the past few days, he states that he had to his history he just wanted to make sure this was not cardiac in nature. He denies any other symptoms such as visual disturbance nausea and vomiting abdominal pain. Patient's EKG was nonischemic. Patient states he has already had his pacemaker interrogated recently, states that he is not having any palpitations. Lab work and imaging performed in the emergency department was reviewed. Patient's lab work did not show any signs of leukocytosis, Chem panel unremarkable, initial troponin indeterminate at 0.039, respiratory panel was positive for rhino/enterovirus, chest x-ray did show possible left lower lobe infiltrate therefore patient will be treated for pneumonia, patient is not requiring supplemental oxygen. He will be trialed with oral antibiotics and outpatient follow up. Patient with a heart score of 3, at this time I do not believe patient will require admission for cardiac workup given the fact that patient troponin only indeterminate with no active chest pain at time of re- evaluation, as well as chest x-ray showing signs of possible pneumonia. Patient was given strict return precautions he verbalized understanding of this and agrees to being discharged home with outpatient follow up I did review patient's previous records from outside hospital at [facility], patient had a nuclear stress test on 09/29/2024 that showed: The left ventricle appears to be dilated. Gated portion of the study was not performed because of the arrhythmia. On stress imaging there appears to be mild inferior and inferior lateral photopenia. The inferior wall improved significantly on prone imaging thereby suggesting it is in attenuation artifact. The lateral wall appears to exhibit a mild predominantly fixed defect which could be artifactual overall no significant areas of ischemia are identified. Patient did have an ER visit at outside hospital at [facility] on 03/11/2025. Patient did have only slightly elevated troponin of 0.034. I also reviewed patient's previous echocardiogram that was performed on 02/04/2025, at that time left ventricle ejection fraction 60-65%, left ventricle is normal size. 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 Disease processes change and evolve, if your symptoms worsen or if you develop any new symptoms that are concerning to you please return for evaluation. Your evaluation today does not show any evidence of any life- threatening/serious illnesses requiring admission to the hospital or surgery. Please follow-up with your doctor for re-evaluation in approximately 1 day. Seek immediate medical attention for any worrisome symptoms. *If you do not have a primary care provider please contact the [facility] Resource line at [phone]. They will ask some questions about your medical history and help get you set up with a doctor in the community. Prescriptions: New doxycycline hyclate 100 mg capsule 100 mg PO BID 5 Days Qty: 10 0RF No Action amiodarone 200 mg tablet 200 mg PO DAILY magnesium oxide 400 mg magnesium capsule 400 mg PO DAILY nitroglycerin 0.4 mg tablet, sublingual 0.4 mg sublingual Q5-15M PRN (Reason: chest pain) Rx Instructions: do not exceed 3 doses per episode acetaminophen 650 mg tablet extended release 650 mg PO Q4H PRN (Reason: pain) amlodipine 10 mg tablet 10 mg PO DAILY Qty: 90 2RF Eliquis 5 mg tablet 5 mg PO BID Qty: 180 1RF lisinopril 40 mg tablet 40 mg PO DAILY hydrochlorothiazide 25 mg tablet 25 mg PO DAILY hydralazine 25 mg tablet 25 mg PO TID colchicine 0.6 mg tablet 0.6 mg PO BID Patient Comments: [NO ORIGINAL SIG] Referrals: Adan Shaikh MD [Primary Care Provider, Internal Medicine] Stand Alone Forms: Patient Portal/API
--- NOTE | 2025-05-27 03:00 | EKG_ITS ---
[address] [address] Test Date: 2025-05-27 Pat Name: Dexter Hoover Department: Room: Gender: Male Women Nurse: GANESH : 1960 Requested By: Order Number: [id number] Reading MD: Adan Shaikh MD Measurements Intervals [place] Rate: 61 P: 45 OH: 262 QRS: -79 QRSD: 110 T: 18 QT: 470 QTc: 473 Interpretive Statements Atrial-paced rhythm with prolonged AV conduction with premature atrial complexes Left anterior fascicular block Anteroseptal infarct , age undetermined Electronically Signed On 05-27-2025 9:23:51 PST by Adan Shaikh MD
[2025-05-27 03:08] LABS: Add Manual Diff / Slide Review NO; Hematocrit 42.3 % (41-53); Hemoglobin 14.5 g/dL (13.5-17.5); Lymphocytes Absolute Auto 1500 /uL (1100-4500); Mean Corpuscular HGB Conc 34.2 % (30-36); Mean Corpuscular Hemoglobin 29.8 PG (26-34); Mean Corpuscular Volume 87.3 fL (80-100); Platelet Count 207 X10^3/uL (150-400)
[2025-05-27 03:16] LABS: INR 1.2 (0.9-1.3); Prothrombin Time 13.1 SECONDS (9.4-12.5)
[2025-05-27 03:18] LABS: PTT Partial Thromboplastin Tim 34 SECONDS (25.1-36.5)
[2025-05-27 03:20] LABS: Alanine Aminotransferase 35 IU/L (<50); Albumin 4.3 g/dL (3.5-5.0); Albumin Globulin Ratio 1.3 (1.0-2.8); Alkaline Phosphatase 67 U/L (38-126); Blood Urea Nitrogen 18 mg/dL (9-20); Calcium 9.0 mg/dL (8.4-10.2); Carbon Dioxide 27 mmol/L (22-32); Chloride 106 mmol/L (98-107); Creatine Kinase 187 U/L (55-170); Estimated Glomerular Filt Rate > 60 mL/min (>60); Globulin 3.2 g/dL (1.7-4.1); Glucose 148 mg/dL (70-99); HEMOLYSIS < 15 (0-50); Lipase 57 U/L (23-300); Magnesium 2.0 mg/dL (1.6-2.3); Potassium 3.6 mmol/L (3.4-5.1); Sodium 141 mmol/L (137-145); Total Protein 7.5 g/dL (6.3-8.2)
[2025-05-27 03:29] LABS: NT-proBNP (BNP-Adult 18+) 531 pg/mL (<125)
[2025-05-27 03:32] LABS: Troponin I 0.039 ng/mL (0.01-0.034)
[2025-05-27 04:02] LABS: Coronavirus NL 63 Not Detected (Not Detect); SARS- CoV-2 Not Detected (Not Detecte)
[2025-05-27] MEDS: DOXYCYCLINE HYCLATE 100 MG TABLET PO (04:13)
== END 2025-05-27 04:21 | disposition home or self-care (01) ==
PROVIDERS: Emergency Provider Student in an Organized Health Care Education/Training Program; PCP Internal Medicine
DX: J18.9 Pneumonia, unspecified organism (principal); B34.1 Enterovirus infection, unspecified; B34.8 Other viral infections of unspecified site; R06.02 Shortness of breath; R51.9 Headache, unspecified; R09.89 Other specified symptoms and signs involving the circulatory and respiratory systems; I10 Essential (primary) hypertension; E11.9 Type 2 diabetes mellitus without complications
CPT/HCPCS: 36415; 71045; 80053; 82550; 83690; 83735; 83880; 84484; 85025; 85610; 85730; 87633; 93005; 99284